=== PATIENT | female | born 1955 | race Caucasian/White ===

== ENCOUNTER → 2016-06-22 | Outpatient (CLI) | payer OTHER ==
--- NOTE | 2016-06-22 19:26 | MR ---
EXAMINATION TYPE: MR lumbar spine wo con DATE OF EXAM: 06/22/2016 12:33 PM COMPARISON: NONE HISTORY: 61-year-old female with pain, evaluate for lumbar stenosis. TECHNIQUE: Multiplanar, multisequence images of the lumbar spine were acquired. FINDINGS: Vertebral body heights are preserved. There is a component of congenital spinal canal narrowing within the lumbar spine. Upper lumbar AP ca nal dimension is 1.2 cm and lower lumbar AP canal dimension is 1.0 cm. No suspicious bone marrow placement. Variable intervertebral disc desiccation especially in the mid to lower lumbar spine with bulging dis ks and moderate disc interspace narrowing at L3-L4 with associated Modic type III sclerotic endplate change. Additional facet arthropathy mid to lower lumbar spine with ligamentum flavum thickening and prominen t dorsal epidural fat. Conus medullaris is normal. At T12-L1, no spinal canal or foraminal stenosis. At L1-L2, no significant spinal canal or neural foraminal stenosis. At L2-L3, mild facet degenerative change without significant spinal canal or neuroforaminal stenosis. At L3-L4, there is hypertrophic facet arthropathy with grade 1 anterolisthesis, disc bulge, ligamentu m flavum thickening, and prominent dorsal epidural fat. Changes result in a severe spinal canal steno sis with mild bilateral neuroforaminal stenosis. At L4-L5, diffuse disc bulge with prominent dorsal epidural fat, ligamentum flavum thickening, and fa cet arthropathy. Changes mildly narrow the spinal canal with moderate bilateral neuroforaminal stenos is. At L5-S1, there is facet arthropathy and prominent dorsal epidural fat. There is circumferential atte nuation of the thecal sac without significant spinal canal stenosis. Mild bilateral neuroforaminal na rrowing. No prevertebral or paravertebral soft tissue abnormality. IMPRESSION: 1. Moderate degenerative disc disease mid to lower lumbar spine with hypertrophic facet arthropathy a nd ligamentum flavum thickening. 2. There is underlying mild congenital canal narrowing. 3. Superimposed degenerative changes are greatest at L3-L4 where there is also grade 1 anterolisthesi s. There is resultant severe spinal canal stenosis at this level with mild bilateral neuroforaminal s tenosis. 4. Mild overall spinal canal narrowing at L4-L5 with moderate bilateral neuroforaminal stenosis.
== END | disposition home or self-care (01) ==
LOC: RADMRIMAIN 11:26
PROVIDERS: ATTEND Family Medicine
DX: M48.06 Spinal stenosis, lumbar region (principal); M99.73 Connective tissue and disc stenosis of intervertebral foramina of lumbar region; M51.36 Other intervertebral disc degeneration, lumbar region; M43.16 Spondylolisthesis, lumbar region; M46.97 Unspecified inflammatory spondylopathy, lumbosacral region; M47.816 Spondylosis without myelopathy or radiculopathy, lumbar region; M24.28 Disorder of ligament, vertebrae
CPT/HCPCS: 72148

== ENCOUNTER → 2016-09-02 | Outpatient (CLI) | payer OTHER ==
[2016-08-30 16:25] VITALS: BMI 21.3
== END | disposition home or self-care (01) ==
LOC: PNWHC3 11:52
PROVIDERS: ATTEND Specialist
DX: M48.06 Spinal stenosis, lumbar region (principal)

== ENCOUNTER → 2016-09-05 | Outpatient (CLI) | payer OTHER ==
--- NOTE | 2016-09-05 17:42 | CT ---
EXAMINATION TYPE: CT soft tissue neck w con DATE OF EXAM: 09/05/2016 4:32 PM COMPARISON: NONE HISTORY: Anterior neck swelling x [address] DLP: 293.50 mGycm Automated exposure control for dose reduction was used. CONTRAST: CT scan of the neck is performed following with IV Contrast, patient injected with 100 mL of Omnipaqu e 300. Axial images are obtained, coronal and sagittal reformatted images are reviewed. FINDINGS: Superior mediastinum appears normal. There is normal branching pattern of the great vessels on the ao rtic arch. There is patency of the carotid and vertebral arteries. Thyroid gland is symmetric. Subman dibular salivary glands are symmetric. Parotid glands are symmetric. There is no evidence of a pharyn geal mass. Epiglottis appears normal. Prevertebral soft tissues are within normal limits. I see no pa thologic enhancement. I see no evidence of cervical adenopathy. There is fairly normal aeration of th e paranasal sinuses. IMPRESSION: Negative CT scan of the neck. No discrete neck mass.
== END | disposition home or self-care (01) ==
LOC: RADCTMAIN 16:07
PROVIDERS: ATTEND Family Medicine
DX: R22.1 Localized swelling, mass and lump, neck (principal)
CPT/HCPCS: 70491; Q9967

== ENCOUNTER → 2016-11-26 | Outpatient (CLI) | payer OTHER ==
--- NOTE | 2016-11-26 14:13 | P.HPIM ---
History of Present Illness H&P Date: 11/26/16 Chief Complaint: low back and leg pain This is a 61-year-old patient referred by Dr. Ortiz for chronic pain in low back and numbness/tingling in lower extremities for epidural steroid injections. Patient has been taking medications from primary care physician including Tylenol medications with some relief. Patient denies adverse drug effects from medications. Patient also denies new-onset weakness, bowel/ bladder incontinence, or any other signs or symptoms of cauda equina syndrome. There are no signs of acute intoxication, and no indications of medication diversion or overuse. Patient notes that pain worsens significantly with standing and improves with sitting and medication. Patient has used several types of medications for pain, including NSAIDS, OPIOIDS.. Patient HAS NOT had surgery. Patient HAS had injections previously (ESIs at [facility] with 2 months' relief after series of 3). Patient HAS NOT had physical therapy recently. In addition to above, 13-point review of systems is also negative for chest pain , shortness of breath, changes in vision, changes in hearing, new onset weakness , abdominal pain, diarrhea, extreme fatigue, malaise, fever, skin changes, homicidal or suicidal ideation, or bowel or bladder incontinence. Vital Signs: Reviewed in EMR Gen: WDWN, AAOx3, NAD HEENT: NCAT, EOMI, hearing grossly normal Pulm: resp unlabored Abd: soft, NT, ND Neck: supple, trachea midline ROM in flexion lumbar spine: reduced ROM in extension lumbar spine: reduced Lumbar paravertebral tenderness: + Facet loading: + bilateral SI joint tenderness: neg Adryan's test: neg Straight leg raise: neg Lower extremity: decreased strength in dorsi/plantarflexion bilateral ankles / Neuro: CN II-XII grossly intact Past Medical History Past Medical History: Hyperlipidemia, Musculoskeletal Disorder, Osteoarthritis ( OA) Additional Past Medical History / Comment(s): pain lower lumber region,migraines ,urinary leakage,steroid injection July 2016 History of Any Multi-Drug Resistant Organisms: None Reported Past Surgical History: Appendectomy, Orthopedic Surgery Additional Past Surgical History / Comment(s): bunionectomy Past Anesthesia/Blood Transfusion Reactions: Motion Sickness Smoking Status: Current some day smoker - Past Family History Father Family Medical History: No Reported History Mother Family Medical History: COPD Medications and Allergies Home Medications Medication Instructions Recorded Confirmed Type FLUoxetine HCL [Fluoxetine HCl] 20 mg PO HS 04/05/14 08/30/16 History Nadolol [Nadolol] 20 mg PO HS 04/05/14 08/30/16 History Simvastatin [Simvastatin] 40 mg PO HS 04/05/14 08/30/16 History Aspirin EC [Ecotrin] 81 mg PO HS 12/06/14 08/30/16 History Biotin 5 mg PO DAILY 12/06/14 08/30/16 History Folic Acid 1 mg PO HS 12/06/14 08/30/16 History Cyclobenzaprine HCl 10 mg PO QAM 08/30/16 08/30/16 History Gabapentin [Neurontin] 300 mg PO TID 08/30/16 08/30/16 History Levothyroxine Sodium [Synthroid] 50 mcg PO QAM 08/30/16 08/30/16 History Montelukast Sodium 10 mg PO HS 08/30/16 08/30/16 History Meloxicam [Mobic] 15 mg PO DAILY #30 tab 11/26/16 Rx Allergies Allergy/AdvReac Type Severity Reaction Status Date / Time Sulfa (Sulfonamide Allergy Unknown Verified 08/30/16 16:16 Antibiotics) Assessment and Plan (1) Lumbar spinal stenosis Status: Chronic (2) Lumbar spondylosis Status: Chronic Plan: 1. Explanation: Opioid and psychological risk scores were reviewed. Diagnoses , prognoses, and multiple treatment options including but not limited to physical therapy, interventional therapies, adjuvant medical therapies, narcotic medication therapies, and surgery were discussed with the patient and all questions were answered to the patient's satisfaction. 2. Opioid agreement: no opioids prescribed today 3. Counseling: The patient was counseled extensively on BODY MASS INDEX, EXERCISE. Specifically, the patient was instructed regarding the importance of weight control, and exercise in the context of both chronic pain and overall health. 4. Procedures: bilateral LMBB L3-S1 5. Consultations: none 6. Investigations: none 7. Medications: Mobic 15 mg daily #30 with one refill 8. Disposition: f/u for procedure as scheduled PQRS measures: 1-Patient's medications are documented in the chart. 2-Tobacco use is negative 3-Patient has not had a pneumococcal vaccine. 4-Advanced care planning discussed, patient unable to give. 5-Opioid contract NOT signed with the patient. 6-Pain positive, follow-up visit or procedure scheduled 7-Patient's blood pressure measured and documented, and patient will follow up with the primary care due to hypertension. 8-Patient's weight was measured, and body mass index ABOVE the normal limits, and counseling was done. Patient instructed to follow up with PCP. 9-Patient WAS NOT identified as an unhealthy alcohol user. Time with Patient: Greater than 30
== END | disposition home or self-care (01) ==
LOC: PNWHC3 13:29
PROVIDERS: ATTEND Anesthesiology
DX: M48.06 Spinal stenosis, lumbar region (principal); M47.816 Spondylosis without myelopathy or radiculopathy, lumbar region; F17.200 Nicotine dependence, unspecified, uncomplicated; E78.5 Hyperlipidemia, unspecified; M19.90 Unspecified osteoarthritis, unspecified site; Z79.899 Other long term (current) drug therapy; Z79.82 Long term (current) use of aspirin; Z79.1 Long term (current) use of non-steroidal anti-inflammatories (NSAID); Z88.2 Allergy status to sulfonamides
CPT/HCPCS: 99211

== ENCOUNTER 2016-12-18 08:08 | Day surgery (SDC) | payer OTHER ==
[2016-12-13 11:02] VITALS: BMI 23.2
[~2016-12-18 08:08] MED LIST: LACTATED RINGERS 1,000 ML IV SCH
[2016-12-18 09:07] VITALS: TEMP 97
--- NOTE | 2016-12-18 09:35 | P.PN ---
Progress Note - Text Progress Note Date: 12/18/16 Patient was consented for bilateral lumbar medial branch block and positioned on the operating room table in prone position. Patient was given 3 mg Versed IV and was unable to tolerate position and lie still. Patient requested to be "put to sleep" and I informed her that this is not possible because I do not have dedicated anesthesia providers to monitor patient's airway. I will refer the patient back to [facility] for further injections, as she had some epidural steroid injections done at that facility earlier this year. She will follow up with our clinic as needed.
[2016-12-18] MEDS ORDERED: IV FLUID CONTINUATION 1,000 ML IV ONE (09:40)
[2016-12-18 10:42] VITALS: BP 138/81; PULSE 82; RESP 16
== END 2016-12-18 11:04 | disposition home or self-care (01) ==
LOC: ORPAIN 08:08
PROVIDERS: ATTEND Anesthesiology
DX: G89.29 Other chronic pain (principal); Z53.8 Procedure and treatment not carried out for other reasons; Z79.1 Long term (current) use of non-steroidal anti-inflammatories (NSAID); Z79.891 Long term (current) use of opiate analgesic; Z88.2 Allergy status to sulfonamides
CPT/HCPCS: 64493; J2250; 99152

== ENCOUNTER → 2018-04-09 | Outpatient (CLI) | payer OTHER ==
--- NOTE | 2018-04-11 09:04 | MM ---
Reason for exam: screening (asymptomatic). Last mammogram was performed 4 years ago. History: Patient is postmenopausal and is nulliparous. MG Screening Mammo w CAD Bilateral CC and MLO view(s) were taken. Prior study comparison: March 29, 2014, bilateral MG screening mammo w CAD. May 28, 2012, bilateral digital screening mammo w/CAD. The breast tissue is extremely dense which could obscure a lesion on mammography. There are 5 grouped heterogeneous calcifications in the left breast upper outer posterior position. Finding is changed when compared to prior studies. ASSESSMENT: Incomplete: need additional imaging evaluation, BI-RAD 0 RECOMMENDATION: Special view mammogram of the left breast.
== END ==
LOC: RADMAMWWP 13:46
PROVIDERS: ATTEND Family Medicine
DX: Z12.31 Encounter for screening mammogram for malignant neoplasm of breast (principal)
CPT/HCPCS: 77067

== ENCOUNTER → 2018-04-14 | Outpatient (CLI) | payer OTHER ==
--- NOTE | 2018-04-14 14:54 | MM ---
Reason for exam: additional evaluation requested from abnormal screening. Last mammogram was performed less than 1 month ago. History: Patient is postmenopausal and is nulliparous. Physical Findings: Nurse did not find any significant physical abnormalities on exam. MG Work Up Mamm w CAD LT CC and MLO view(s) were taken of the left breast. Prior study comparison: April 09, 2018, bilateral MG screening mammo w CAD. March 29, 2014, bilateral MG screening mammo w CAD. Finding: There are typically benign round, diffuse/scattered and grouped calcifications in the left breast. Area of concern regional benign round calcification. No suspicious cluster of microcalcifications. New finding and increase in number of calcifications since April 09, 2018 and March 29, 2014. These results were verbally communicated with the patient and result sheet given to the patient on 04/14/18. ASSESSMENT: Benign, BI-RAD 2 RECOMMENDATION: Return to routine screening mammogram schedule for both breasts.
== END | disposition home or self-care (01) ==
LOC: RADMAMWWP 13:36
PROVIDERS: ATTEND Family Medicine
DX: R92.8 Other abnormal and inconclusive findings on diagnostic imaging of breast (principal)
CPT/HCPCS: 77065

== ENCOUNTER → 2018-06-12 | Outpatient (CLI) | payer OTHER ==
--- NOTE | 2018-06-12 13:01 | CT ---
EXAMINATION TYPE: CT chest wo con DATE OF EXAM: 06/12/2018 COMPARISON: NONE HISTORY: Low oxygenation. Rule out emphysema CT DLP: 159.3 mGycm. Automated Exposure Control for Dose Reduction was Utilized. TECHNIQUE: CT scan of the thorax is performed without IV contrast. FINDINGS: LUNGS: The lungs are predominantly clear, there is no concerning parenchymal mass or nodule identifie d. Minimal linear scarring medial right middle lobe is present and medial left lung base near diaphra gm axial images 40 and 47 for reference There is no pleural effusion or pneumothorax seen. The trac heobronchial tree is patent. MEDIASTINUM: Lack of IV contrast is noted to limit evaluation for mediastinal and especially hilar ad enopathy. There are no definitive greater than 1 cm hilar or mediastinal lymph nodes. No cardiomega ly or pericardial effusion is seen. Mild coronary artery calcification proximal LAD is seen axial harry ge 33. Mild calcified plaque of aorta extends into branch vessels. OTHER: Heterogeneously dense fibroglandular tissue in both breasts with scattered benign round calcif ications. IMPRESSION: Minimal lower lung linear scarring. No CT evidence for underlying emphysematous change. N o suspicious acute pulmonary process.
== END | disposition home or self-care (01) ==
LOC: RADCTMAIN 12:25
PROVIDERS: ATTEND Family Medicine
DX: J98.4 Other disorders of lung (principal)
CPT/HCPCS: 71250

== ENCOUNTER → 2019-02-23 | Day surgery (SDC) | payer OTHER ==
[2019-02-22 08:39] VITALS: BMI 24.4
[~2019-02-23] MED LIST changes: +LIDOCAINE 1% 20 ML VIAL (10MG/ML) FOR IV START INTRADERMA PRN; +LIDOCAINE 1% INJ 10MG/ML (20 ML MDV) ONE; +PROPOFOL 10 MG/ML 20 ML VIAL IV ONE
[2019-02-23 08:07] VITALS: TEMP 98.3
--- NOTE | 2019-02-23 08:40 | P.GSHP ---
History of Present Illness H&P Date: 02/23/19 Chief Complaint: GERD this a 64-year-old female who presents today for EGD. Patient had issues with GERD. Past Medical History Past Medical History: GERD/Reflux, Hyperlipidemia, Musculoskeletal Disorder, Osteoarthritis (OA), Thyroid Disorder Additional Past Medical History / Comment(s): pain lower lumber region,migraines,urinary leakage,SOME TROUBLE SWALLING " History of Any Multi-Drug Resistant Organisms: None Reported Past Surgical History: Appendectomy, Orthopedic Surgery Additional Past Surgical History / Comment(s): bunionectomy, PAIN CLINIC INJECTIONS Past Anesthesia/Blood Transfusion Reactions: Motion Sickness Smoking Status: Current some day smoker - Past Family History Father Family Medical History: Cancer Additional Family Medical History / Comment(s): LUNG CANCER Mother Family Medical History: COPD Medications and Allergies Home Medications Medication Instructions Recorded Confirmed Type FLUoxetine HCL [Fluoxetine HCl] 20 mg PO HS 04/05/14 02/22/19 History Nadolol 20 mg PO HS 04/05/14 02/23/19 History Simvastatin 40 mg PO HS 04/05/14 02/22/19 History Aspirin EC [Ecotrin] 81 mg PO HS 12/06/14 02/22/19 History Folic Acid 1 mg PO HS 12/06/14 02/22/19 History Cyclobenzaprine HCl 10 mg PO BID 08/30/16 02/22/19 History Gabapentin [Neurontin] 600 mg PO TID 08/30/16 02/22/19 History Levothyroxine Sodium [Synthroid] 50 mcg PO QAM 08/30/16 02/22/19 History Montelukast Sodium 10 mg PO HS 08/30/16 02/22/19 History Acetaminophen [Tylenol] 500 mg PO TID PRN 12/13/16 02/22/19 History Fluticasone Nasal [place] [Flonase 1 spray EA NOSTRIL BID PRN 12/13/16 02/22/19 History Nasal [place]] Melatonin/Valerian Unknown Dos 1 dose PO HS 12/13/16 02/22/19 History Multivitamins, Thera [Multivitamin 1 tab PO DAILY 12/13/16 02/22/19 History (formulary)] Vitamin B Complex 1 each PO DAILY 12/13/16 02/22/19 History Amitriptyline HCl 20 mg PO HS 02/22/19 02/22/19 History Varenicline [Chantix Continuing 1 mg PO HS 02/22/19 02/22/19 History Pack] Allergies Allergy/AdvReac Type Severity Reaction Status Date / Time Sulfa (Sulfonamide Allergy Unknown Verified 02/23/19 07:55 Antibiotics) Childhood Surgical - Exam Vital Signs Temp Pulse Resp BP Pulse Ox 98.3 F 89 17 138/63 98 02/23/19 08:05 02/23/19 08:05 02/23/19 08:05 02/23/19 08:05 02/23/19 08:05 - General well developed, well nourished, no distress - Eyes PERRL - ENT normal pinna - Neck no masses - Respiratory normal expansion - Cardiovascular Rhythm: regular - Abdomen Abdomen: soft, non tender Assessment and Plan Assessment: GERD. We'll perform EGD.
--- NOTE | 2019-02-23 08:47 | P.OP ---
Date of Procedure: 02/23/19 Preoperative Diagnosis: GERD Postoperative Diagnosis: antral gastritis Mild esophagitis No evidence of hiatal hernia Procedure(s) Performed: EGD Anesthesia: MAC Surgeon: Jacky Romo Pathology: other (antrum, esophagus) Condition: stable Disposition: PACU Description of Procedure: the patient's placed on the endoscopy table in the lateral position. HC IV sedation. The gastroscope placed oropharynx passed in the esophagus into the stomach. Scope was then placed through the pylorus. The first and second portion of the duodenum. Normal. Scope summer back the antrum this. Mildly inflamed. A biopsies performed. Scope was unretroflexed and remainder stomach appeared normal. There was no significant hiatal hernia. The GE junction was at 40 cm. The distal esophagus appeared minimally inflamed a biopsies performed. The proximal esophagus appeared normal. Scope was withdrawn for patient.
[2019-02-23 09:02] VITALS: RESP 18
[2019-02-23 09:15] VITALS: BP 104/70; PULSE 61
--- NOTE | 2019-02-23 13:01 | NM ---
Nuclear medicine hepatobiliary scan. HISTORY: Pain. DOSAGE: The patient received 1.15 mcg of CCK and 4.7 mCi of Technetium 99m Choletec. FINDINGS: There is normal hepatic extraction. The gallbladder is seen by 20 minutes. There is bilia ry to bowel clearance by 50 minutes. Ejection fraction is 82%. IMPRESSION: 1. No diagnostic evidence of cholecystitis. 2. Ejection fraction of 82% which can occasionally be associated with hyperdynamic gallbladder. Corre late clinically.
== END ==
LOC: ORWHC2ENDO 07:37
PROVIDERS: ATTEND Surgery
DX: K29.50 Unspecified chronic gastritis without bleeding (principal); K21.0 Gastro-esophageal reflux disease with esophagitis; E78.5 Hyperlipidemia, unspecified; M19.90 Unspecified osteoarthritis, unspecified site; E07.9 Disorder of thyroid, unspecified; G43.909 Migraine, unspecified, not intractable, without status migrainosus; F17.210 Nicotine dependence, cigarettes, uncomplicated; R32 Unspecified urinary incontinence; M54.5 Low back pain; Z80.1 Family history of malignant neoplasm of trachea, bronchus and lung; Z82.5 Family history of asthma and other chronic lower respiratory diseases; Z79.890 Hormone replacement therapy; Z79.899 Other long term (current) drug therapy; Z88.2 Allergy status to sulfonamides
CPT/HCPCS: 88305; 78227; 43239; A9537; J2805; J2001; J2704

== ENCOUNTER 2019-03-22 06:17 | Day surgery (SDC) | payer OTHER ==
[2019-03-18 12:44] VITALS: BMI 24.7
[~2019-03-22 06:17] MED LIST changes: +DEXAMETHASONE SOD PHOSPHATE 10 MG/ML 1 ML VIAL IV ONE; +HEPARIN SODIUM,PORCINE 5,000 UNIT/ML 1 ML VIAL SQ ONE; -LIDOCAINE 1% 20 ML VIAL (10MG/ML) FOR IV START INTRADERMA PRN; -LIDOCAINE 1% INJ 10MG/ML (20 ML MDV) ONE; +MIDAZOLAM 2 MG/2 ML VIAL IV PRN; -PROPOFOL 10 MG/ML 20 ML VIAL IV ONE; +fentaNYL (PF) 50 MCG/ML 2 ML AMP IV PRN
[2019-03-22] MEDS ORDERED: ONDANSETRON 4 MG/2 ML VIAL IVP ONE (06:59)
[2019-03-22] MEDS ORDERED: DEXAMETHASONE SOD PHOS (MDV) 100 MG/10 ML VIAL IV ONE (07:00)
--- NOTE | 2019-03-22 07:46 | P.GSHP ---
History of Present Illness H&P Date: 03/22/19 Chief Complaint: Right upper quadrant pain This is a 64-year-old female who presents today for laparoscopic cholecystectomy. Patient's had complete the right upper quadrant pain. Her HIDA scan shows abnormal ejection fraction consistent biliary dyskinesia and chronic cholecystitis Past Medical History Past Medical History: GERD/Reflux, Hyperlipidemia, Osteoarthritis (OA), Thyroid Disorder Additional Past Medical History / Comment(s): Pain lower lumber region, hx migraines, last 2 yrs ago, urinary leakage, difficulty swallowing. History of Any Multi-Drug Resistant Organisms: None Reported Past Surgical History: Appendectomy, Orthopedic Surgery Additional Past Surgical History / Comment(s): Bunionectomy, PAIN CLINIC INJECTIONS. Past Anesthesia/Blood Transfusion Reactions: Motion Sickness Past Psychological History: No Psychological Hx Reported Smoking Status: Current some day smoker Past Alcohol Use History: Daily Additional Past Alcohol Use History / Comment(s): STARTED SMOKING AT AGE 20, TRYING TO QUIT, SMOKES 1/2 PACK A WEEK, DRINKS 2 BEERS DAILY. Past Drug Use History: None Reported - Past Family History Father Family Medical History: Cancer Additional Family Medical History / Comment(s): LUNG CANCER. Mother Family Medical History: COPD Medications and Allergies Home Medications Medication Instructions Recorded Confirmed Type FLUoxetine HCL [Fluoxetine HCl] 20 mg PO HS 04/05/14 03/18/19 History Nadolol 20 mg PO HS 04/05/14 03/22/19 History Simvastatin 40 mg PO HS 04/05/14 03/18/19 History Cyclobenzaprine HCl 10 mg PO BID 08/30/16 03/18/19 History Gabapentin [Neurontin] 600 mg PO TID 08/30/16 03/22/19 History Levothyroxine Sodium [Synthroid] 50 mcg PO QAM 08/30/16 03/22/19 History Montelukast Sodium 10 mg PO HS 08/30/16 03/22/19 History Fluticasone Nasal [place] [Flonase 1 spray EA NOSTRIL BID PRN 12/13/16 03/22/19 History Nasal [place]] Melatonin/Valerian Unknown Dos 1 dose PO HS 12/13/16 03/18/19 History Amitriptyline HCl 20 mg PO QAM 02/22/19 03/22/19 History Varenicline [Chantix Continuing 1 mg PO HS 02/22/19 03/18/19 History Pack] Ranitidine HCl 300 mg PO HS 03/18/19 03/18/19 History Allergies Allergy/AdvReac Type Severity Reaction Status Date / Time Sulfa (Sulfonamide Allergy Unknown Verified 03/22/19 06:40 Antibiotics) Childhood Surgical - Exam Vital Signs Temp Pulse Resp BP Pulse Ox 97.5 F L 68 16 148/67 96 03/22/19 06:54 03/22/19 06:54 03/22/19 06:54 03/22/19 06:54 03/22/19 06:54 - General well developed, well nourished, no distress - Eyes PERRL - ENT normal pinna - Neck no masses - Respiratory normal expansion - Cardiovascular Rhythm: regular - Abdomen Abdomen: soft, non tender Assessment and Plan Assessment: Biliary dyskinesia Chronic cholecystitis We'll perform laparoscopic cholecystectomy
[2019-03-22] MEDS ORDERED: LIDOCAINE 1% INJ 10MG/ML (20 ML MDV) ONE (07:54)
[2019-03-22] MEDS ORDERED: ePHEDrine SULFATE/0.9% NACL/PF 50 MG/5 ML SYRINGE IV ONE (07:54)
[2019-03-22] MEDS ORDERED: PROPOFOL 10 MG/ML 20 ML VIAL IV ONE (07:54)
[2019-03-22] MEDS ORDERED: MIDAZOLAM 2 MG/2 ML VIAL ONE (07:54)
[2019-03-22] MEDS ORDERED: ROCURONIUM BROMIDE 10 MG/ML 10 ML VIAL IV ONE (07:54)
[2019-03-22] MEDS ORDERED: GLYCOPYRROLATE 0.2 MG/ML 2 ML VIAL ONE (07:54)
[2019-03-22] MEDS ORDERED: NEOSTIGMINE 1 MG/ML 10 ML VIAL ONE (07:54)
[2019-03-22] MEDS ORDERED: fentaNYL (PF) 50 MCG/ML 2 ML AMP ONE (07:54)
[2019-03-22] MEDS ORDERED: SUCCINYLCHOLINE CHLORIDE 100 MG/5 ML SYR IV ONE (07:54)
[2019-03-22] MEDS ORDERED: NALOXONE 0.4 MG/ML 1 ML VIAL ONE (07:54)
[2019-03-22] MEDS ORDERED: BUPIVACAIN-EPI 0.25%-1:200,000 30 ML VIAL SQ ONE ×2 (08:06→08:08)
--- NOTE | 2019-03-22 08:33 | P.OP ---
Date of Procedure: 03/22/19 Preoperative Diagnosis: Cholecystitis Postoperative Diagnosis: Cholecystitis Procedure(s) Performed: Laparoscopic cholecystectomy Anesthesia: RUSH Surgeon: Jacky Romo Estimated Blood Loss (ml): 5 Pathology: other (Gallbladder) Condition: stable Disposition: PACU Operative Findings: The patient was placed on the operating table. The patient received a general endotracheal tube anesthesia. The patients abdomen was prepped and draped in the usual sterile fashion. Through an infraumbilical stab incision, the fascia of the anterior abdominal wall was grasped with a pair of Kochers and then the Veress needle was placed in the peritoneal cavity. Position of the Veress needle was confirmed with positive drop test. The abdomen was then insufflated. After adequate insufflation, the 10 mm trocar was placed in the peritoneal cavity. Following this the laparoscope was placed in the peritoneal cavity. The patient was placed in the head-up, right side up position and then a 5 mm trocar was placed in the right lateral and right subcostal position under direct visualization. A 8 mm trocar was placed in the epigastric position. The gallbladder was grasped in the fundus and infundibulum. Traction on the gallbladder was placed in the lateral and the cephalad positions. The triangle of Calot was visualized.. The cystic duct was bluntly dissected until the union of the cystic duct and common bile duct was seen. A critical view of safety was achieved. The cystic duct was then divided and sealed with the Harmonic scissors. A PDS Endoloop was then placed throughout the cystic duct stump. The cystic artery divided and sealed with the Harmonic scissors. The gallbladder was then removed from the liver bed using Harmonic scissors. The gallbladder was then extracted through the epigastric port site. Operative field was checked for any bleeding spots and Harmonic scissors was used to coagulate the liver bed. The abdomen was irrigated. The trocars were removed. The skin was closed using interrupted 3-0 Vicryl suture. Dermabond dressing were applied. The patient tolerated the procedure well.
[2019-03-22 08:43] VITALS: TEMP 97.2
[2019-03-22 10:00] VITALS: BP 112/70; PULSE 63; RESP 18
== END 2019-03-22 10:23 | disposition home or self-care (01) ==
LOC: OR 06:17
PROVIDERS: ATTEND Surgery
DX: K81.1 Chronic cholecystitis (principal); K82.8 Other specified diseases of gallbladder; K21.9 Gastro-esophageal reflux disease without esophagitis; E78.5 Hyperlipidemia, unspecified; G43.909 Migraine, unspecified, not intractable, without status migrainosus; E07.9 Disorder of thyroid, unspecified; F32.9 Major depressive disorder, single episode, unspecified; F17.210 Nicotine dependence, cigarettes, uncomplicated; M19.90 Unspecified osteoarthritis, unspecified site; Z88.2 Allergy status to sulfonamides; Z79.890 Hormone replacement therapy; Z79.899 Other long term (current) drug therapy; Z90.49 Acquired absence of other specified parts of digestive tract; Z80.1 Family history of malignant neoplasm of trachea, bronchus and lung; Z83.6 Family history of other diseases of the respiratory system
CPT/HCPCS: 88304; 47562; J2250; J1644; J2310; J2710; J0690; J2405; J2001; J3010; J1100; J0330; J2704

== ENCOUNTER → 2020-11-23 | Outpatient (CLI) | payer MEDICARE ==
--- NOTE | 2020-11-24 12:44 | MM ---
Reason for exam: screening (asymptomatic). Last mammogram was performed 2 years and 7 months ago. History: Patient is postmenopausal and is nulliparous. Took hormonal contraceptives for 6 months. Physical Findings: A clinical breast exam by your physician is recommended on an annual basis and results should be correlated with mammographic findings. MG 3D Screening Mammo W/Cad Bilateral CC and MLO view(s) were taken. Prior study comparison: April 14, 2018, left breast MG work up mamm w CAD LT. April 09, 2018, bilateral MG screening mammo w CAD. The breast tissue is extremely dense which could obscure a lesion on mammography. Stable benign calcifications. There is no discrete abnormality. No significant changes when compared with prior studies. ASSESSMENT: Benign, BI-RAD 2 RECOMMENDATION: Routine screening mammogram of both breasts in 1 year.
== END | disposition home or self-care (01) ==
LOC: RADMAMWWP 11:17
PROVIDERS: ATTEND Family Medicine
DX: Z12.31 Encounter for screening mammogram for malignant neoplasm of breast (principal); Z78.0 Asymptomatic menopausal state; Z79.3 Long term (current) use of hormonal contraceptives
CPT/HCPCS: 77063; 77067

== ENCOUNTER → 2022-03-06 | Outpatient (CLI) | payer MEDICARE ==
[2022-03-06 14:09] LABS: Basophils # (A) 0.1 k/uL (0-0.2); Basophils % (A) 1 %; Eosinophils # (A) 0.2 k/uL (0-0.7); Eosinophils % (A) 3 %; HCT 34.6 % (34.0-46.0); HGB 11.5 gm/dL (11.4-16.0); Lymphocytes # (A) 1.6 k/uL (1.0-4.8); Lymphocytes % (A) 21 %; MCH 31.4 pg (25.0-35.0); MCHC 33.2 g/dL (31.0-37.0); MCV 94.7 fL (80.0-100.0); Mean Platelet Volume 7.4; Monocytes # (A) 0.4 k/uL (0-1.0); Monocytes % (A) 6 %; Neutrophils % (A) 67 %; Platelet Count 348 k/uL (150-450); RBC 3.65 m/uL (3.80-5.40); RDW 13.6 % (11.5-15.5); WBC 7.5 k/uL (3.8-10.6)
[2022-03-06 14:18] LABS: ALT 17 U/L (4-34); AST 25 U/L (14-36); African American GFR (CKD) >90 (>60 ml/min/1.73 sqM); Albumin 4.4 g/dL (3.5-5.0); Alkaline Phosphatase 62 U/L (38-126); Anion Gap 8 mmol/L; Blood Urea Nitrogen 7 mg/dL (7-17); Calcium 9.4 mg/dL (8.4-10.2); Carbon Dioxide 30 mmol/L (22-30); Chloride 98 mmol/L (98-107); Glucose 83 mg/dL (74-99); Non-African American GFR(CKD) >90 (>60 ml/min/1.73 sqM); Partial Thromboplastin Time 24.4 sec (22.0-30.0); Potassium 4.5 mmol/L (3.5-5.1); Prothrombin Time 10.3 sec (9.0-12.0); Sodium 136 mmol/L (137-145); Total Bilirubin 0.5 mg/dL (0.2-1.3); Total Protein 7.1 g/dL (6.3-8.2)
[2022-03-06 14:32] LABS: Appearance,Urine Clear (Clear); Bilirubin,Urine Negative (Negative); Blood,Urine Negative (Negative); Color,Urine Yellow; Glucose,Urine (UA) Negative (Negative); Ketones,Urine Negative (Negative); Leukocyte Esterase,Urine Small (Negative); Nitrite,Urine Negative (Negative); PH, Urine 7.5 (5.0-8.0); Protein,Urine Trace (Negative); RBC,Urine <1 /hpf (0-5); Specific Gravity,Urine 1.015 (1.001-1.035); Squamous Epithelial Cell,Urine 1 /hpf (0-4); Urobilinogen,Urine <2.0 mg/dL (<2.0); WBC,Urine 3 /hpf (0-5)
== END | disposition home or self-care (01) ==
LOC: LABPAT 12:48
PROVIDERS: ATTEND Orthopaedic Surgery
DX: Z01.812 Encounter for preprocedural laboratory examination (principal); M16.11 Unilateral primary osteoarthritis, right hip
CPT/HCPCS: 80053; 81001; 85025; 85610; 85730; 87070

== ENCOUNTER 2022-03-13 10:42 | Day surgery (SDC) | payer MEDICARE ==
[~2022-03-13 10:42] MED LIST changes: +ACETAMINOPHEN TAB 500 MG TAB PO PRN; -DEXAMETHASONE SOD PHOSPHATE 10 MG/ML 1 ML VIAL IV ONE; +DEXAMETHASONE SOD PHOSPHATE 10 MG/ML 1 ML VIAL IV PRN; +DEXAMETHASONE SOD PHOSPHATE 4 MG/ML 1 ML VIAL IV ONE; +DOCUSATE 100 MG CAP PO PRN; +FAMOTIDINE 20 MG/2 ML VIAL IVP PRN; -HEPARIN SODIUM,PORCINE 5,000 UNIT/ML 1 ML VIAL SQ ONE; +HYDROmorphone 0.5 MG/0.5 ML SYRINGE IVP PRN; +KETOROLAC 15 MG/ML 1 ML VIAL IVP PRN; -LACTATED RINGERS 1,000 ML IV SCH; -MIDAZOLAM 2 MG/2 ML VIAL IV PRN; +ONDANSETRON 4 MG/2 ML VIAL IVP ONE; +ONDANSETRON 4 MG/2 ML VIAL IVP PRN; +ROPIVACAINE/EPI/CLONIDINE/KET 50 ML SYRINGE MISCELLANE PRN; +TRANEXAMIC ACID IN NACL,ISO-OS 1,000 MG in SALINE 1 100ML.BAG IVPB PRN; -fentaNYL (PF) 50 MCG/ML 2 ML AMP IV PRN; +oxyCODONE ER 10 MG TAB.ER.12H PO PRN
[2022-03-13] MEDS: LACTATED RINGERS 1,000 ML IV SCH ×2 (11:03→16:48)
[2022-03-13] MEDS ORDERED: MIDAZOLAM 2 MG/2 ML VIAL IV ONE (11:56)
[2022-03-13] MEDS ORDERED: MIDAZOLAM 2 MG/2 ML VIAL ONE (12:47)
[2022-03-13] MEDS ORDERED: TRANEXAMIC ACID IN NACL,ISO-OS 1,000 MG/100 ML BAG ONE (12:47)
[2022-03-13] MEDS ORDERED: HYDROmorphone (PF) 1 MG/ML ONE (12:47)
[2022-03-13] MEDS ORDERED: DEXAMETHASONE SOD PHOSPHATE 4 MG/ML 1 ML VIAL ONE (12:47)
[2022-03-13] MEDS ORDERED: ROPIVACAINE 5 MG/ML 30 ML VIAL ONE (12:47)
[2022-03-13] MEDS ORDERED: PROPOFOL 10 MG/ML 20 ML VIAL IV ONE (12:47)
[2022-03-13] MEDS ORDERED: LACTATED RINGERS 1,000 ML IV ONE (15:04)
[2022-03-13] MEDS ORDERED: NALOXONE 0.4 MG/ML 1 ML VIAL IV PRN (15:30)
[2022-03-13] MEDS ORDERED: ONDANSETRON 4 MG/2 ML VIAL IVP PRN (15:30)
[2022-03-13] MEDS ORDERED: HYDROcodone/APAP 5-325MG 1 EACH TAB PO PRN ×2 (15:30)
[2022-03-13] MEDS ORDERED: hydrOXYzine pamoate 25 MG CAP PO PRN (15:30)
[2022-03-13] MEDS ORDERED: HYDROmorphone 0.5 MG/0.5 ML SYRINGE IVP PRN ×3 (15:30)
--- NOTE | 2022-03-13 15:34 | P.OP ---
Date of Procedure: 03/13/22 Preoperative Diagnosis: Right hip avascular necrosis Postoperative Diagnosis: Right hip avascular necrosis with collapse of the femoral head Procedure(s) Performed: Right direct anterior total hip arthroplasty Implants: 1. Renae Trident II Acetabular Cup, Size #46 2. Winthrop Insignia Size #3 Femoral Stem, Standard Offset 3. Dual Mobility OD 36 mm, ID 22.2 mm, +0neck (dual mobility was used due to the elevated dislocation risk with avascular necrosis and her small cup size) Anesthesia: regional, spinal Surgeon: Colby Hsieh Neck Cutter #1: Daniel Casey Estimated Blood Loss (ml): 100 IV fluids (ml): 1,200 Pathology: other (Femoral head sent to pathology due to collapse and likely avascular necrosis of the femoral head) Condition: stable Disposition: PACU Indications for Procedure: The patient is a very pleasant 67-year-old female who I have been seeing in the office for over a year with right hip pain. She had x-ray and MRI findings showing avascular necrosis. She had incapacitating hip pain and an inability to walks I recommended proceeding with a total hip replacement. We discussed the potential risks and complications of surgery and the increased risk profile of dislocation with avascular necrosis. I had a long discussion with the patient in the office on the potential risks and complications of an elective total hip replacement through a direct anterior approach. Risks discussed include, but are certainly not limited to, risks from anesthesia, superficial infection requiring local wound care or antibiotics, deep herlinda-prosthetic joint infection and the treatment required to eradicate infection, intraoperative fracture, postoperative periprosthetic fracture, damage to local blood vessels or nerves particularly the lateral femoral cutaneous nerve, delayed wound healing requiring local wound care or possibly surgical debridement, hip dislocation, leg length discrepancy, soft tissue irritation around the total hip implant such as iliopsoas tendinitis or tro chanteric bursitis, wear and osteolysis from the implants, squeaking or audible noises, groin pain, thigh pain, heterotopic ossification, stiffness, aseptic loosening of the implants, dissatisfaction with surgical outcome, need for revision surgery, DVT, PE, swelling of the operative extremity, acute coronary event, stroke, failure to thrive, and possibly loss of life or limb. The patient understands that while these are the most common complications after an elective hip replacement there are certainly other less common complications possible. They were given ample time to ask questions regarding the potential complications of a hip replacement. Following our discussion the patient provided their verbal and written consent to go forward with an elective total hip replacement. Operative Findings: Avascular necrosis with collapse of the femoral head and delamination of the superior articular cartilage Description of Procedure: The patient was identified in the preoperative holding area and the correct hip was marked with my initials. I reviewed the procedure and consent with the patient. All of their questions were answered. The patient was then brought back into the operating room by anesthesia. While on the [facility] anesthesia was administered by the anesthesia team. Preoperative antibiotics and tranexamic acid were also given. After the patient was under anesthesia I examined their ankles to determine their preoperative leg length discrepancy. The skin over the anterior aspect of the hip was shaved to remove hair over the site of planned incision. Both feet and ankles were padded with webril and boots for the [place] were applied. The patient was then carefully transferred onto the [place] table. A perineal post was immediately placed. The arms were placed on arm holders and were well-padded. Both boots were secured to the spars on the [place] table. The patient was positioned so that the pelvis was centered over the post. Nonsterile drapes were applied. A timeout was performed identifying the correct patient, operative extremity, and procedure. At this point fluoroscopy was brought in to take preoperative images of the pelvis and operative hip. Using the standing AP pelvis from the office as a template, a comparable image was obtained with fluoroscopy. A metallic bar was used to create a bi-ischial line for use as a reference to leg length adjustments during the procedure. Global offset was also measured on both the operative and nonoperative leg. Fluoroscopy was then brought out and a pre-scrub using a chlorhexidine scrub brush was performed. The operative limb was then prepped and draped in the standard sterile fashion. An anterior longitudinal incision was made lateral and distal to the ASIS. The skin and subcutaneous tissues were incised sharply. The underlying tensor fascia was identified and incised in its midportion. The fascia was dissected free from the underlying muscle and the muscle belly was retracted. A blunt tipped cobra retractor was placed over the superior neck under the muscle fibers of the gluteus minimus. The deep enveloping fascia of the tensor was incised. The anterior leash of vessels were then identified and cauterized. The fascia between the rectus and the capsule was then incised and the pre-capsular fat was excised. A second Cobra was placed inferior to the neck. The interval between the rectus and iliocapsularis and the hip capsule was developed and a retractor was placed carefully over the anterior rim of the acetabulum. A T-shaped anterior capsulotomy was performed. The superior capsular leaflet was left in place in the inferior capsular flap was excised. The Cobra retractors were placed intracapsularly. We then made a femoral neck osteotomy according to preoperative and intraoperative templating and confirmed the level of the osteotomy using fluoroscopic imaging. The femoral head was removed, passed off to the back table, and sized. There was a large area of collapse of the superior femoral head and delamination of the cartilage consistent with avascular necrosis. The superior capsular flap was excised. Retractors were placed circumferentially exposing the acetabulum. We then circumferentially debrided the acetabulum free of labrum and osteophytes. The pulvinar was removed to fully visualize the cotyloid fossa. We then sequentially reamed to achieve peripheral fit and excellent bleeding subchondral bone. The socket was thoroughly irrigated. The acetabular component was impacted into the appropr iate position using fluoroscopy to guide version, inclination, and depth of insertion taking care to have a comparable image of the AP pelvis to the standing image taken in the office. An excellent press-fit was achieved and final position was confirmed using fluoroscopy. The press fit was augmented with bony cancellus dome screws. The liner was then impacted into the socket. Attention was then turned to the femur. The remnant dorsal lateral capsule was excised. The short external rotators were visible and protected. A bone hook was used to confirm appropriate translation of the trochanter away from the acetabulum. The leg was then extended and adducted and the bone hook was used to elevate the femur for broaching. A box osteotome and blunt tipped canal sound was then utilized to gain access to the femoral canal. We then sequentially broached the femur in appropriate anteversion until excellent torsional stability was achieved. The neck cut was brought flush to the trial broach with a calcar planar. A trial neck and head were then placed onto the broach and the hip was atraumatically reduced under direct visualization. External rotation to 90 was performed to assess stability. Fluoroscopy was brought in. An AP and lateral fluoroscopic image of the proximal femur was obtained to assess position and fill of the trial broach. An AP of the pelvis was then obtained and matched to the preoperative image taken. A bi-ischial bar was then placed and measurements were taken to assess changes in length and offset. The hip was then carefully dislocated, the proximal femur was exposed, and the trial implants were removed. The wound and proximal femur was thoroughly irrigated using sterile saline and pulsatile lavage. The final femoral implant was dispensed and gently tapped into place generating an excellent press-fit. The trunnion was cleansed and the final head was tapped into place to engage the Storm taper. The acetabulum was irrigated and visualized to be free of debris. The hip was carefully reduced. Stability was checked clinically with external rotation to 90 and there was no evidence of instability. Final fluoroscopic images were taken. The wound was then thoroughly irrigated and soaked with a dilute Betadine rinse for 3 minutes. 3 L of sterile saline was irrigated through the wound using pulsatile lavage. Local anesthetic cocktail was injected into the soft tissues around the surgical field. A deep drain was placed. The wound was then closed in layers. A sterile dressing was placed over the surgical incision and drain site. The drapes were taken down and the patient was carefully transferred off of the [place] table. Following removal of the boots the leg lengths felt acceptable. The patient was then taken to recovery room having tolerated the procedure well. Daniel Casey PA-C was required as a skilled assistant chief engineer for patient positioning, surgical exposure, retraction, placement of implants, and closure of the surgi amarilis wound. PLAN: The patient can weight-bear as tolerated on the operative extremity. 2 doses of postoperative antibiotics. DVT prophylaxis with aspirin 81 mg twice a day based on preoperative risk stratification. Physical therapy for gait training. Discontinue drain postoperative day #1 if output is less than 100 mL per shift.
--- NOTE | 2022-03-13 16:32 | XR ---
Intraoperative/procedural fluoroscopic services were provided. Total fluoroscopy time is 36 seconds w ith a total of 10 submitted images to PACS. Please see the operative/procedural note for further deta ils.
[2022-03-13] MEDS: ASPIRIN 81 MG PO SCH (20:52)
[2022-03-13] MEDS: CYCLOBENZAPRINE 10 MG TAB PO SCH (20:53)
[2022-03-13] MEDS ORDERED: ATORVASTATIN 10 MG TAB PO SCH (21:00)
[2022-03-13] MEDS ORDERED: SENNOSIDES-DOCUSATE SODIUM 1 EACH TAB PO SCH (21:00)
[2022-03-13] MEDS ORDERED: MONTELUKAST 10 MG TAB PO SCH (21:00)
[2022-03-13] MEDS ORDERED: FLUoxetine HCL 20 MG CAP PO SCH (21:00)
[2022-03-13] MEDS ORDERED: AMITRIPTYLINE HCL 10 MG TAB PO SCH (21:00)
[2022-03-14] MEDS: LACTATED RINGERS 1,000 ML IV SCH ×3 (02:52→12:43)
[2022-03-14] MEDS ORDERED: LEVOTHYROXINE 50 MCG TAB PO SCH (06:30)
[2022-03-14] MEDS ORDERED: PANTOPRAZOLE 40 MG TABLET PO SCH (07:30)
[2022-03-14 07:48] VITALS: BP 133/61; PULSE 84; RESP 16; TEMP 98.1
--- NOTE | 2022-03-14 08:39 | P.DS ---
Providers Expected date of discharge: 03/14/22 Attending physician: Colby Hsieh Consults: 03/13/22 15:30 Consult Physician Routine Consulting Provider: Nuno Ortiz Consult Reason/Comments: medical management Do you want consulting provider notified?: Yes Primary care physician: Paty Ortiz [facility] Course: This is a 67-year-old female who has been followed in our office by Dr. Hsieh for continued complaints of right hip pain due to right hip AVN. Treatment options were discussed, and patient elected to undergo a right total hip arthroplasty. Patient was seen pre-operatively by Dr. Ortiz and cleared for surgery. Patient underwent a direct anterior right total hip arthroplasty on 03/13/22. The procedure was performed without complication or sequelae. The patient is doing fairly well postoperatively. Vital signs and labs are stable on postoperative day #1. Patient was examined bedside this morning with Dr. Hsieh. She is up to the bedside chair. Patient states she is overall doing very well and the pain in her right hip is well-controlled. Her hemovac drain was pulled this morning. She has been ambulating with a walker with minimal assistance. Patient is tolerating her breakfast well. Patient is comfortable being discharged home today. Patient denies chest pain, shortness of breath, nausea, vomiting, fevers, chills. On examination, the patient is sitting up in the bedside chair in no apparent distress. She is alert and orientated 3. On inspection of the right hip, there is a clean, dry, intact surgical dressing in place. There is no bleeding or drainage the dressing. Patient has good strength and ROM of the right ankle and toes. Motor and sensory function is intact of the right lower extremity. Femoral nerve function intact. The dorsalis pedis pulse is easily palpable, the right lower extremity is warm and well perfused with brisk capillary refill. Calf is soft and non-tender to palpation. Patient is discharged home with home health in good condition, pending medical clearance. Patient will follow-up with Dr. Hsieh in the office in 2 weeks. Please see med rec for accurate list of discharge medication. Plan - Discharge Summary Discharge Rx Participant: Yes New Discharge Prescriptions: New Docusate [Colace] 100 mg PO BID #60 capsule HYDROcodone/APAP 5-325MG [[place] 5-325] 1 - 2 tab PO Q6HR PRN 32 Days #7 tab PRN Reason: Pain Omeprazole 40 mg PO DAILY 30 Days #30 cap Aspirin 81 mg PO BID 30 Days #60 tab Diclofenac Sodium [Voltaren] 75 mg PO BID 30 Days #60 tab No Action nadoloL [Nadolol] 20 mg PO DAILY FLUoxetine HCL [Fluoxetine HCl] 20 mg PO HS Simvastatin 20 mg PO HS Levothyroxine Sodium [Synthroid] 50 mcg PO QAM Cyclobenzaprine HCl 10 mg PO BID Montelukast Sodium 10 mg PO HS Amitriptyline HCl 10 - 20 mg PO HS Pantoprazole [Protonix] 40 mg PO DAILY OXcarbazepine [Trileptal] 300 mg PO DAILY guaiFENesin [Mucinex] 600 mg PO Q12H PRN PRN Reason: Congestion HYDROcodone/APAP 7.5-325MG [[place]leaf 7.5-325] 1 tab PO Q6HR PRN PRN Reason: Pain Discharge Medication List FLUoxetine HCL [Fluoxetine HCl] 20 mg PO HS 04/05/14 [History] Simvastatin 20 mg PO HS 04/05/14 [History] nadoloL [Nadolol] 20 mg PO DAILY 04/05/14 [History] Cyclobenzaprine HCl 10 mg PO BID 08/30/16 [History] Levothyroxine Sodium [Synthroid] 50 mcg PO QAM 08/30/16 [History] Montelukast Sodium 10 mg PO HS 08/30/16 [History] Amitriptyline HCl 10 - 20 mg PO HS 02/22/19 [History] HYDROcodone/APAP 7.5-325MG [[place] 7.5-325] 1 tab PO Q6HR PRN 03/11/22 [History] OXcarbazepine [Trileptal] 300 mg PO DAILY 03/11/22 [History] Pantoprazole [Protonix] 40 mg PO DAILY 03/11/22 [History] guaiFENesin [Mucinex] 600 mg PO Q12H PRN 03/11/22 [History] Aspirin 81 mg PO BID 30 Days #60 tab 03/14/22 [Rx] Diclofenac Sodium [Voltaren] 75 mg PO BID 30 Days #60 tab 03/14/22 [Rx] Docusate [Colace] 100 mg PO BID #60 capsule 03/14/22 [Rx] HYDROcodone/APAP 5-325MG [Greenleaf 5-325] 1 - 2 tab PO Q6HR PRN 32 Days #7 tab 03/14/22 [Rx] Omeprazole 40 mg PO DAILY 30 Days #30 cap 03/14/22 [Rx] Follow up Appointment(s)/Referral(s): Colby Hsieh MD [Medical Doctor] - 2 Weeks Activity/Diet/Wound Care/Special Instructions: Weight bear to tolerance on operative extremity with a walker. Keep operative dressing intact until follow-up appointment in the office. Call the office if dressing becomes saturated or falls off. May shower over dressing. Take pain medications as prescribed. Take aspirin 81mg BID x 4 weeks for blood clot prevention. Follow-up in the office in two weeks at [facility]. Call the office with any questions or concerns, Discharge Disposition: HOME WITH HOME HEALTH SERVICES
[2022-03-14] MEDS ORDERED: OXcarbazepine 300 MG TAB PO SCH (09:00)
[2022-03-14] MEDS: ASPIRIN 81 MG PO SCH (09:46)
[2022-03-14] MEDS: CYCLOBENZAPRINE 10 MG TAB PO SCH (09:46)
[2022-03-14 10:33] LABS: Basophils # (A) 0.02 X 10*3/uL (0.00-0.10); Basophils % (A) 0.1 %; Eosinophils # (A) 0 X 10*3/uL (0.04-0.35); Eosinophils % (A) 0 %; HCT 21.8 % (37.2-46.3); HGB 7.1 g/dL (12.0-15.0); Immature Grans, Automated 0.4 %; Lymphocytes # (A) 1.18 X 10*3/uL (0.90-5.00); Lymphocytes % (A) 8.2 %; MCH 30.7 pg (27.0-32.0); MCHC 32.6 g/dL (32.0-37.0); MCV 94.4 fL (80.0-97.0); Mean Platelet Volume 9.2 fL (9.5-12.2); Monocytes # (A) 0.79 X 10*3/uL (0.20-1.00); Monocytes % (A) 5.5 %; NRBC Per 100 WBC 0 /100 WBCS (0.0-0.0); Neutrophils # (A) 12.35 X 10*3/uL (1.80-7.70); Neutrophils % (A) 85.8 %; Platelet Count 236 X 10*3/uL (140-440); RBC 2.31 X 10*6/uL (4.10-5.20); RDW 13.6 % (11.5-14.5)
[2022-03-14 12:54] LABS: HCT 24.1 % (34.0-46.0); MCH 31.8 pg (25.0-35.0); MCHC 34.4 g/dL (31.0-37.0); MCV 92.2 fL (80.0-100.0); Mean Platelet Volume 7.8; Platelet Count 311 k/uL (150-450); RBC 2.61 m/uL (3.80-5.40); RDW 13.9 % (11.5-15.5); WBC 13.2 k/uL (3.8-10.6)
[2022-03-14 13:06] LABS: HGB 8.3 gm/dL (11.4-16.0)
--- NOTE | 2022-03-14 21:54 | P.ANPRN ---
Procedure Note - Anesthesia - Nerve Block Performed Right Soham Single Time Out Performed: Yes Date of Procedure: 03/13/22 Procedure Start Time: 11:55 Procedure Stop Time: 12:02 Location of Patient: PreOp Indication: Acute Post-Operative Pain, Requested by Surgeon Sedation Type: Sedate with meaningful contact maintained Preparation: Sterile Prep Position: Supine Needle Types: Pajunk Needle Gauge: 21 Ultrasound used to visualize needle placement: Yes Ultrasound used to observe medication spread: Yes Blood Aspirated: No Pain Paresthesia on Injection Noted: No Resistance on Injection: Normal Image Stored and Saved: Yes Events: Uneventful and Well Tolerated (ropi .5% 20cc plus dexamethasone 4mg)
== END 2022-03-14 14:56 | disposition home health service (06) ==
LOC: OR 10:42 → 4SSUR 15:16 → OR 03-14 14:56
PROVIDERS: ATTEND Orthopaedic Surgery
DX: M16.11 Unilateral primary osteoarthritis, right hip (principal); M87.051 Idiopathic aseptic necrosis of right femur; M87.9 Osteonecrosis, unspecified; Z96.641 Presence of right artificial hip joint; E78.5 Hyperlipidemia, unspecified; E03.9 Hypothyroidism, unspecified; R26.9 Unspecified abnormalities of gait and mobility; Z88.2 Allergy status to sulfonamides; F17.210 Nicotine dependence, cigarettes, uncomplicated; Z79.890 Hormone replacement therapy; Z79.899 Other long term (current) drug therapy; Z79.82 Long term (current) use of aspirin
CPT/HCPCS: 27130; 97162; 64447; 86900; 86901; 88305; 85025; 85027; 86850; 88311; 73501; C1776; J2250; J1100 ×2; J0690 ×2; J2405; J1170; J2795; J1885; J2704

== ENCOUNTER 2022-03-16 01:18 | Emergency (ER) | payer MEDICARE ==
[2022-03-16 01:32] VITALS: BP 104/68; PULSE 89; RESP 18; TEMP 98.2
--- NOTE | 2022-03-16 03:41 | ED ---
General Adult HPI - General Chief complaint: Skin/Abscess/Foreign Body Stated complaint: Incision site bleeding Time Seen by Provider: 03/16/22 03:02 Source: EMS Mode of arrival: EMS Limitations: no limitations - History of Present Illness Initial comments: Patient has noted drainage from the site of her right hip surgery for [address] Hsieh. She has not had any systemic symptoms, no fever or chills. No chest pain, dyspnea or cough. No new pain or swelling. She does note that her leg has some swelling of the surgery but this has not changed. She states she is ambulating. -: hour(s) Location: right, lower extremity Severity scale (1-10): 0 Consistency: now resolved Improves with: none Worsens with: none Associated Symptoms: denies other symptoms - Related Data Home Medications Medication Instructions Recorded Confirmed FLUoxetine HCL [Fluoxetine HCl] 20 mg PO HS 04/05/14 03/11/22 Simvastatin 20 mg PO HS 04/05/14 03/13/22 nadoloL [Nadolol] 20 mg PO DAILY 04/05/14 03/11/22 Cyclobenzaprine HCl 10 mg PO BID 08/30/16 03/11/22 Levothyroxine Sodium [Synthroid] 50 mcg PO QAM 08/30/16 03/11/22 Montelukast Sodium 10 mg PO HS 08/30/16 03/13/22 Amitriptyline HCl 10 - 20 mg PO HS 02/22/19 03/13/22 HYDROcodone/APAP 7.5-325MG [[place] 1 tab PO Q6HR PRN 03/11/22 03/13/22 7.5-325] OXcarbazepine [Trileptal] 300 mg PO DAILY 03/11/22 03/11/22 Pantoprazole [Protonix] 40 mg PO DAILY 03/11/22 03/13/22 guaiFENesin [Mucinex] 600 mg PO Q12H PRN 03/11/22 03/13/22 Previous Rx's Medication Instructions Recorded Aspirin 81 mg PO BID 30 Days #60 tab 03/14/22 Diclofenac Sodium [Voltaren] 75 mg PO BID 30 Days #60 tab 03/14/22 Docusate [Colace] 100 mg PO BID #60 capsule 03/14/22 HYDROcodone/APAP 5-325MG [[place] 1 - 2 tab PO Q6HR PRN 32 Days #7 03/14/22 5-325] tab Omeprazole 40 mg PO DAILY 30 Days #30 cap 03/14/22 Allergies Allergy/AdvReac Type Severity Reaction Status Date / Time Sulfa (Sulfonamide Allergy Unknown Verified 03/16/22 01:32 Antibiotics) Childhood Review of Systems ROS Statement: Those systems with pertinent positive or pertinent negative responses have been documented in the HPI. ROS Other: All systems not noted in ROS Statement are negative. Constitutional: Denies: fever, chills Respiratory: Denies: cough, dyspnea Cardiovascular: Denies: chest pain, palpitations, syncope Gastrointestinal: Denies: abdominal pain Skin: Denies: rash Neurological: Denies: weakness, numbness Hematological/Lymphatic: Denies: easy bleeding Past Medical History Past Medical History: GERD/Reflux, Hyperlipidemia, Osteoarthritis (OA), Thyroid Disorder Additional Past Medical History / Comment(s): Pain lower lumber region, hx migraines, last 2 yrs ago, urinary leakage, difficulty swallowing. History of Any Multi-Drug Resistant Organisms: None Reported Past Surgical History: Appendectomy, Joint Replacement, Orthopedic Surgery Additional Past Surgical History / Comment(s): Bunionectomy, PAIN CLINIC INJECTIONS. Past Anesthesia/Blood Transfusion Reactions: Motion Sickness Past Psychological History: No Psychological Hx Reported Smoking Status: Former smoker Past Alcohol Use History: Daily Past Drug Use History: None Reported - Past Family History Father Family Medical History: Cancer Additional Family Medical History / Comment(s): LUNG CANCER. Mother Family Medical History: COPD General Exam Limitations: no limitations General appearance: alert, in no apparent distress Head exam: Present: atraumatic, normocephalic Respiratory exam: Present: normal lung sounds bilaterally. Absent: respiratory distress, wheezes, rales, rhonchi, stridor Cardiovascular Exam: Present: regular rate, normal rhythm, normal heart sounds. Absent: systolic murmur, diastolic murmur, rubs, gallop Neurological exam: Present: alert. Absent: motor sensory deficit Skin exam: Present: warm, dry, normal color, other (Patient has a small puncture wound under the dressing which has no active bleeding. No purulent drainage. No tenderness, erythema or warmth.). Absent: rash Course Vital Signs 03/16/22 01:30 Temperature 98.2 F Pulse Rate 89 Respiratory 18 Rate Blood Pressure 104/68 O2 Sat by Pulse 99 Oximetry Medical Decision Making - Medical Decision Making Patient is 67-year-old woman here with moderate amount of serosanguineous drainage which had come from the right thigh of the surgical dressings. The drainage has stopped. There is no dehiscence. There is no signs of infection. A new dressing is applied to follow her surgeon. Discussed appropriate further care and follow-up as well as return parameters. Disposition Clinical Impression: Encounter for postoperative wound check Disposition: HOME SELF-CARE Condition: Good Instructions (If sedation given, give patient instructions): Postoperative Bleeding (ED) Is patient prescribed a controlled substance at d/c from ED?: No Referrals: Paty Ortiz DO [Primary Care Provider] - 1-2 days Colby Hsieh MD [Medical Doctor] - 1-2 days
== END 2022-03-16 03:58 | disposition home or self-care (01) ==
LOC: EC 01:18
DX: Z48.810 Encounter for surgical aftercare following surgery on the sense organs (principal); E78.5 Hyperlipidemia, unspecified; K21.9 Gastro-esophageal reflux disease without esophagitis; M19.90 Unspecified osteoarthritis, unspecified site; E07.9 Disorder of thyroid, unspecified; Z79.1 Long term (current) use of non-steroidal anti-inflammatories (NSAID); Z79.890 Hormone replacement therapy; Z88.2 Allergy status to sulfonamides; Z87.891 Personal history of nicotine dependence; Z79.899 Other long term (current) drug therapy
CPT/HCPCS: 99283

== ENCOUNTER → 2022-12-24 | Outpatient (CLI) | payer MEDICARE ==
[~2022-12-24] MED LIST changes: -ACETAMINOPHEN TAB 500 MG TAB PO PRN; -DEXAMETHASONE SOD PHOSPHATE 10 MG/ML 1 ML VIAL IV PRN; -DEXAMETHASONE SOD PHOSPHATE 4 MG/ML 1 ML VIAL IV ONE; -DOCUSATE 100 MG CAP PO PRN; -FAMOTIDINE 20 MG/2 ML VIAL IVP PRN; -HYDROmorphone 0.5 MG/0.5 ML SYRINGE IVP PRN; +IRON SUCROSE 200 MG in SODIUM CHLORIDE 0.9% 100 ML IVPB ONE; -KETOROLAC 15 MG/ML 1 ML VIAL IVP PRN; -ONDANSETRON 4 MG/2 ML VIAL IVP ONE; -ONDANSETRON 4 MG/2 ML VIAL IVP PRN; -ROPIVACAINE/EPI/CLONIDINE/KET 50 ML SYRINGE MISCELLANE PRN; +SODIUM CHLORIDE 0.9% 500 ML 500 ML in EMPTY BAG 1 BAG IV PRN; -TRANEXAMIC ACID IN NACL,ISO-OS 1,000 MG in SALINE 1 100ML.BAG IVPB PRN; -oxyCODONE ER 10 MG TAB.ER.12H PO PRN
[2022-12-24 11:25] VITALS: BP 134/73; PULSE 67; RESP 15; TEMP 97.9
== END ==
LOC: PROCWHC3 10:56
PROVIDERS: ATTEND Family Medicine
DX: D50.9 Iron deficiency anemia, unspecified (principal)
CPT/HCPCS: 96365; J1756

== ENCOUNTER → 2023-07-17 | Outpatient (CLI) | payer MEDICARE ==
--- NOTE | 2023-07-18 10:47 | MM ---
Reason for Exam: Screening (asymptomatic). Last mammogram was performed 2 year(s) and 8 month(s) ago. Patient History: Menarche at age 12. Patient has no children. Postmenopausal. Hormonal Contraceptives for 6 months. Risk Values: Lani 5 year model risk: 1.9%. NCI Lifetime model risk: 6.2%. Prior Study Comparison: 04/09/2018 Bilateral Screening Mammogram, [facility]. 04/14/2018 Left Diagnostic Mammogram, [facility]. 11/23/2020 Bilateral Screening Mammogram, [facility]. Tissue Density: The breasts are heterogeneously dense, which may obscure small masses. Findings: Analyzed By CAD. Right breast: There is no suspicious group of microcalcifications or new suspicious mass. Left breast: There is no suspicious group of microcalcifications or new suspicious mass. Overall Assessment: Negative, BI-RAD 1 Management: Screening Mammogram of both breasts in [address] [facility] will attempt to contact patient to return for supplemental views and ultrasound if indicated. Patient should continue monthly self-breast exams. A clinical breast exam by your physician is recommended on an annual basis. This exam should not preclude additional follow-up of suspicious palpable abnormalities. Note on Lani scores and lifetime risk: 1. A Lani score greater than 3% is considered moderate risk. If this is the case, consider specialist referral to assess eligibility for a risk reducing agent. 2. If overall lifetime risk for the development of breast cancer is 20% or higher, the patient may qualify for future screening with alternating mammogram and breast MRI. Electronically signed and approved by: Kyle Prather DO
== END | disposition home or self-care (01) ==
LOC: RADMAMWWP 11:19
PROVIDERS: ATTEND Family Medicine
DX: Z12.31 Encounter for screening mammogram for malignant neoplasm of breast (principal); Z78.0 Asymptomatic menopausal state
CPT/HCPCS: 77063; 77067

== ENCOUNTER 2024-09-04 17:27 | Emergency (ER) | payer MEDICARE ==
[2024-09-04 17:33] VITALS: RESP 18; TEMP 98.5
--- NOTE | 2024-09-04 19:00 | ED ---
General Adult HPI - General Chief complaint: Weakness Stated complaint: Weakness/Numbness Time Seen by Provider: 09/04/24 17:53 Source: patient Mode of arrival: ambulatory Limitations: no limitations - History of Present Illness Initial comments: This patient is a 69-year-old woman who comes here from local urgent care. The patient had gone there to have evaluation of generalized weakness and fatigue, dizziness, and tingling of the bilateral extremities. Symptoms getting worse over the past 1 to 2 days. The patient also notes that she had some recent lab tests that showed that her sodium had been low. The patient not having any focal symptoms. -: days(s) Severity scale (1-10): 0 Consistency: constant Improves with: none Worsens with: none Associated Symptoms: weakness Treatments Prior to Arrival: none - Related Data Home Medications Medication Instructions Recorded Confirmed FLUoxetine HCL [Fluoxetine HCl] 20 mg PO DAILY 04/05/14 09/22/24 Simvastatin 40 mg PO HS 04/05/14 09/22/24 nadoloL [Nadolol] 20 mg PO DAILY 04/05/14 09/22/24 Levothyroxine Sodium [Synthroid] 50 mcg PO DAILY 08/30/16 09/22/24 Amitriptyline HCl 20 mg PO HS 02/22/19 09/22/24 Vitamin B Complex/Folic Acid 0.4 mg PO DAILY 12/24/22 09/22/24 [Vitamin B Complex] Budesonide 0.5 mg INHALATION RT-BID 09/22/24 09/22/24 Fluticasone/Umeclidin/Vilanter 1 puff INHALATION RT-DAILY 09/22/24 09/22/24 [Trelegy Ellipta 200-62.5-25] Ondansetron Odt [Zofran ODT] 4 mg PO Q6H PRN 09/22/24 09/22/24 Pantoprazole [Protonix] 40 mg PO DAILY 09/22/24 09/22/24 SUMAtriptan succinate [Imitrex] 100 mg PO BID PRN 09/22/24 09/22/24 Previous Rx's Medication Instructions Recorded Acetaminophen Tab [Tylenol] 650 mg PO Q6HR PRN tab 09/23/24 Magnesium Oxide [Magox 400] 400 mg PO DAILY #30 tab 09/23/24 Allergies Allergy/AdvReac Type Severity Reaction Status Date / Time Sulfa (Sulfonamide Allergy Unknown Verified 09/22/24 20:10 Antibiotics) Childhood Review of Systems ROS Statement: Those systems with pertinent positive or pertinent negative responses have been documented in the HPI. ROS Other: All systems not noted in ROS Statement are negative. Constitutional: Reports: weakness. Denies: fever, chills Eyes: Denies: vision change Respiratory: Denies: cough, dyspnea Cardiovascular: Denies: chest pain, palpitations, edema, syncope Endocrine: Reports: fatigue Gastrointestinal: Denies: abdominal pain, nausea, vomiting, diarrhea Genitourinary: Denies: dysuria, hematuria Musculoskeletal: Denies: back pain Skin: Denies: rash Neurological: Reports: paresthesias. Denies: headache, weakness, numbness Past Medical History Past Medical History: GERD/Reflux, Hyperlipidemia, Osteoarthritis (OA), Thyroid Disorder Additional Past Medical History / Comment(s): Pain lower lumber region, hx migraines, last 2 yrs ago, urinary leakage, difficulty swallowing. History of Any Multi-Drug Resistant Organisms: None Reported Past Surgical History: Appendectomy, Joint Replacement, Orthopedic Surgery Additional Past Surgical History / Comment(s): Bunionectomy, PAIN CLINIC INJECTIONS. Past Anesthesia/Blood Transfusion Reactions: Motion Sickness Past Psychological History: No Psychological Hx Reported Smoking Status: Light tobacco smoker Past Alcohol Use History: Occasional - Past Family History Father Family Medical History: Cancer Additional Family Medical History / Comment(s): LUNG CANCER. Mother Family Medical History: COPD General Exam Limitations: no limitations General appearance: alert, in no apparent distress Head exam: Present: atraumatic, normocephalic Eye exam: Present: normal appearance, PERRL. Absent: scleral icterus, conjunctival injection, nystagmus ENT exam: Present: normal oropharynx Neck exam: Present: normal inspection, full ROM Respiratory exam: Present: normal lung sounds bilaterally. Absent: respiratory distress, wheezes, rales, rhonchi, stridor, accessory muscle use Cardiovascular Exam: Present: regular rate, normal rhythm, normal heart sounds. Absent: systolic murmur, diastolic murmur, rubs, gallop GI/Abdominal exam: Present: soft. Absent: distended, tenderness, guarding, rebound, rigid, mass Extremities exam: Present: normal inspection, normal capillary refill. Absent: pedal edema, calf tenderness Back exam: Present: normal inspection. Absent: CVA tenderness (R), CVA tenderness (L) Neurological exam: Present: alert, oriented X3, CN II-XII intact. Absent: motor sensory deficit Skin exam: Present: warm, dry, intact, normal color. Absent: rash Course Vital Signs 09/04/24 09/04/24 17:29 20:29 Temperature 98.5 F Pulse Rate 74 68 Respiratory 18 18 Rate Blood Pressure 181/78 165/75 O2 Sat by Pulse 99 100 Oximetry EKG Findings - EKG Results: EKG: interpreted by RADHAD, sinus rhythm (Rate 65 bpm), normal axis, normal QRS, normal ST/T, no acute changes Medical Decision Making - Medical Decision Making Was pt. sent in by a medical professional or institution (, PA, M1A1 TANK CREWMAN, urgent care, hospital, or jail...) When possible be specific @ -[No] Did you speak to anyone other than the patient for history (EMS, parent, family, police, friend...)? What history was obtained from this source @ -[No] Did you review nursing and triage notes (agree or disagree)? Why? @ -[I reviewed and agree with nursing and triage notes] Were old charts reviewed (outside hosp., previous admission, EMS record, old EKG, old radiological studies, urgent care reports/EKG's, jail records)? Report findings @ -[No old charts were reviewed] Differential Diagnosis (chest pain, altered mental status, abdominal pain women, abdominal pain men, vaginal bleeding, weakness, fever, dyspnea, syncope, headache, dizziness, GI bleed, back pain, seizure, CVA, palpatations, mental health, musculoskeletal)? @ -[Differential Dizziness: Benign paroxysmal positional Vertigo, Meniere's disease, otitis media, acoustic neuroma, vertebrobasilar insufficiency, cerebellar stroke, encephalitis, hypovolemic, arrhythmia, coronary artery syndrome, anemia, this is not meant to be an all-inclusive list EKG interpreted by me (3pts min.). @ -[As above] X-rays interpreted by me (1pt min.). @ -[None done] CT interpreted by me (1pt min.). @ -[None done] U/S interpreted by me (1pt. min.). @ -[None done] What testing was considered but not performed or refused? (CT, X-rays, U/S, labs)? Why? @ -[None] What meds were considered but not given or refused? Why? @ -[None] Did you discuss the management of the patient with other professionals (professionals i.e. , PA, M1A1 TANK CREWMAN, lab, RT, psych nurse, social service agency director, picture hanger, teacher, founder chairman and chief creative officer, briefcase sewer)? Give summary @ -[No] Was smoking cessation discussed for >3mins.? @ -[No] Was critical care preformed (if so, how long)? @ -[No] Were there social determinants of health that impacted care today? How? (Homelessness, low income, unemployed, alcoholism, drug addiction, transpo rtation, low edu. Level, literacy, decrease access to med. care, usp, rehab)? @ -[No] Was there de-escalation of care discussed even if they declined (Discuss DNR or withdrawal of care, Hospice)? DNR status @ -[No] What co-morbidities impacted this encounter? (DM, HTN, Smoking, COPD, CAD, Cancer, CVA, ARF, Chemo, Hep., AIDS, mental health diagnosis, sleep apnea, morbid obesity)? @ -[None] Was patient admitted / discharged? Hospital course, mention meds given and route, prescriptions, significant lab abnormalities, going to OR and other pertinent info. @ -[Patient is 69-year-old woman here with weakness, fatigue, paresthesias. The patient's workup does reveal some mild hypocalcemia and this was supplemented. The patient stable to continue as outpatient, discussed appropriate further care and follow-up as well as return parameters. Undiagnosed new problem with uncertain prognosis? @ -[No] Drug Therapy requiring intensive monitoring for toxicity (Heparin, Nitro, Insulin, Cardizem)? @ -[No] Were any procedures done? @ -[No] Diagnosis/symptom? @ -[Generalized weakness and fatigue Paresthesias hypocalcemia Acute, or Chronic, or Acute on Chronic? @ -Acute Uncomplicated (without systemic symptoms) or Complicated (systemic symptoms)? @ -[Uncomplicated Side effects of treatment? @ -[No] Exacerbation, Progression, or Severe Exacerbation? @ -[No] Poses a threat to life or bodily function? How? (Chest pain, USA, [place], pneumonia, PE, COPD, DKA, ARF, appy, cholecystitis, CVA, Diverticulitis, Homicidal, Suicidal, threat to staff... and all critical care pts) @ -[No] All treatments are based on ideal body weight as in ED triage - Lab Data Result diagrams: 09/04/24 18:44 09/04/24 18:44 Lab Results 09/04/24 09/04/24 Range/Units 18:44 18:44 WBC 7.83 (4.50-10.00) 10*3/uL RBC 3.54 L (4.10-5.20) 10*6/uL Hgb 12.6 (12.0-15.0) g/dL Hct 35.9 L (37.2-46.3) % MCV 101.4 H (80.0-97.0) fL MCH 35.6 H (27.0-32.0) pg MCHC 35.1 (32.0-37.0) g/dL Plt Count 277 (140-440) 10*3/uL MPV 9.0 L (9.5-12.2) fL Immature Gran % (Auto) 0.4 % Neutrophils % 68.1 % Lymphocytes % 24.1 % Monocytes % 5.5 % Eosinophils % 1.4 % Basophils % 0.5 % Immature Gran # 0.03 (0.00-0.04) 10*3/uL Neutrophils # 5.33 (1.80-7.70) 10*3/uL Lymphocytes # 1.89 (0.90-5.00) 10*3/uL Monocytes # 0.43 (0.20-1.00) 10*3/uL Eosinophils # 0.11 (0.04-0.35) 10*3/uL Basophils # 0.04 (0.00-0.10) 10*3/uL Sodium 140 (137-145) mmol/L Potassium 3.5 (3.5-5.1) mmol/L Chloride 104 (98-107) mmol/L Carbon Dioxide 26 (22-30) mmol/L Anion Gap 10 mmol/L BUN 9 (7-17) mg/dL Creatinine 0.53 (0.52-1.04) mg/dL Est GFR (CKD-EPI)AfAm >90 (>60 ml/min/1.73 sqM) Est GFR (CKD-EPI)NonAf >90 (>60 ml/min/1.73 sqM) Glucose 94 (74-99) mg/dL Calcium 7.3 L (8.4-10.2) mg/dL Total Bilirubin 0.4 (0.2-1.3) mg/dL AST 31 (14-36) U/L ALT 23 (4-34) U/L Alkaline Phosphatase 40 (38-126) U/L Total Protein 6.8 (6.3-8.2) g/dL Albumin 4.6 (3.5-5.0) g/dL TSH 0.925 (0.465-4.680) mIU/L Disposition Clinical Impression: Paresthesia Disposition: HOME SELF-CARE Instructions (If sedation given, give patient instructions): Hypocalcemia (ED) Is patient prescribed a controlled substance at d/c from ED?: No Referrals: Paty Ortiz DO [Primary Care Provider] - 1-2 days
[2024-09-04 19:08] LABS: Basophils # (A) 0.04 10*3/uL (0.00-0.10); Basophils % (A) 0.5 %; Eosinophils # (A) 0.11 10*3/uL (0.04-0.35); Eosinophils % (A) 1.4 %; HCT 35.9 % (37.2-46.3); HGB 12.6 g/dL (12.0-15.0); Lymphocytes # (A) 1.89 10*3/uL (0.90-5.00); Lymphocytes % (A) 24.1 %; MCH 35.6 pg (27.0-32.0); MCHC 35.1 g/dL (32.0-37.0); MCV 101.4 fL (80.0-97.0); Monocytes # (A) 0.43 10*3/uL (0.20-1.00); Monocytes % (A) 5.5 %; Neutrophils # (A) 5.33 10*3/uL (1.80-7.70); Neutrophils % (A) 68.1 %; Platelet Count 277 10*3/uL (140-440); RBC 3.54 10*6/uL (4.10-5.20); WBC 7.83 10*3/uL (4.50-10.00)
[2024-09-04 19:22] LABS: ALT 23 U/L (4-34); AST 31 U/L (14-36); African American GFR (CKD) >90 (>60 ml/min/1.73 sqM); Albumin 4.6 g/dL (3.5-5.0); Alkaline Phosphatase 40 U/L (38-126); Anion Gap 10 mmol/L; Blood Urea Nitrogen 9 mg/dL (7-17); Calcium 7.3 mg/dL (8.4-10.2); Carbon Dioxide 26 mmol/L (22-30); Chloride 104 mmol/L (98-107); Glucose 94 mg/dL (74-99); Non-African American GFR(CKD) >90 (>60 ml/min/1.73 sqM); Potassium 3.5 mmol/L (3.5-5.1); Sodium 140 mmol/L (137-145); Total Bilirubin 0.4 mg/dL (0.2-1.3); Total Protein 6.8 g/dL (6.3-8.2)
[2024-09-04 20:30] VITALS: BP 165/75; PULSE 68
[2024-09-04] MEDS: CALCIUM GLUCONATE IN NACL 1 GM in SALINE 1 100ML.BAG IVPB ONE (20:49)
== END 2024-09-04 20:52 | disposition home or self-care (01) ==
LOC: EC 17:27
DX: R20.2 Paresthesia of skin (principal); R53.1 Weakness; R53.83 Other fatigue; F17.210 Nicotine dependence, cigarettes, uncomplicated; Z88.2 Allergy status to sulfonamides
CPT/HCPCS: 36415; 80053; 84443; 85025; 93005; 99284

== ENCOUNTER 2024-09-22 16:10 | Observation (INO) | payer MEDICARE ==
--- NOTE | 2024-09-22 17:54 | ED ---
Recheck HPI - General Chief Complaint: Recheck/Abnormal Lab/Rx Stated Complaint: electrolyte imbalance Time Seen by Provider: 09/22/24 17:17 Source: patient, RN notes reviewed Mode of arrival: ambulatory Limitations: no limitations - History of Present Illness Initial Comments: 69-year-old female with history of hypothyroidism, and hypertension presenting to the emergency room with referral by primary care provider for concerns of hypomagnesemia and hypokalemia. Patient states that over the weekend she went to [facility] where she states she was feeling dizzy and nauseated where she was admitted for low potassium and magnesium. Patient had her labs rechecked yesterday and today she was instructed report to the emergency department. Patient states that over the past few weeks she has been feeling generally tired. She also states that she has been having bilateral upper extremity paresthesias. Patient states that she has 3-6 beers per day. denies history of alcohol withdrawal. - Related Data Home Medications Medication Instructions Recorded Confirmed FLUoxetine HCL [Fluoxetine HCl] 20 mg PO DAILY 04/05/14 09/22/24 Simvastatin 40 mg PO HS 04/05/14 09/22/24 nadoloL [Nadolol] 20 mg PO DAILY 04/05/14 09/22/24 Levothyroxine Sodium [Synthroid] 50 mcg PO DAILY 08/30/16 09/22/24 Amitriptyline HCl 20 mg PO HS 02/22/19 09/22/24 Vitamin B Complex/Folic Acid 0.4 mg PO DAILY 12/24/22 09/22/24 [Vitamin B Complex Tablet] Budesonide 0.5 mg INHALATION RT-BID 09/22/24 09/22/24 Fluticasone/Umeclidin/Vilanter 1 puff INHALATION RT-DAILY 09/22/24 09/22/24 [Trelegy Ellipta 200-62.5-25] Magnesium Oxide [Magox 400] 400 mg PO DAILY 09/22/24 09/22/24 Ondansetron Odt [Zofran Odt] 4 mg PO Q6H PRN 09/22/24 09/22/24 Pantoprazole [Protonix] 40 mg PO DAILY 09/22/24 09/22/24 SUMAtriptan succinate [Imitrex] 100 mg PO BID PRN 09/22/24 09/22/24 Allergies Allergy/AdvReac Type Severity Reaction Status Date / Time Sulfa (Sulfonamide Allergy Unknown Verified 09/22/24 20:10 Antibiotics) Childhood Review of Systems ROS Statement: Those systems with pertinent positive or pertinent negative responses have been documented in the HPI. ROS Other: All systems not noted in ROS Statement are negative. Past Medical History Past Medical History: GERD/Reflux, Hyperlipidemia, Osteoarthritis (OA), Thyroid Disorder Additional Past Medical History / Comment(s): Pain lower lumber region, hx migraines, last 2 yrs ago, urinary leakage, difficulty swallowing. History of Any Multi-Drug Resistant Organisms: None Reported Past Surgical History: Appendectomy, Joint Replacement, Orthopedic Surgery Additional Past Surgical History / Comment(s): Bunionectomy, PAIN CLINIC INJECTIONS. Past Anesthesia/Blood Transfusion Reactions: Motion Sickness Past Psychological History: No Psychological Hx Reported Smoking Status: Light tobacco smoker Past Alcohol Use History: Occasional - Past Family History Father Family Medical History: Cancer Additional Family Medical History / Comment(s): LUNG CANCER. Mother Family Medical History: COPD General Exam Limitations: no limitations Respiratory exam: Present: normal lung sounds bilaterally. Absent: respiratory distress, wheezes, rales, rhonchi, stridor Cardiovascular Exam: Present: regular rate, normal rhythm, normal heart sounds. Absent: systolic murmur, diastolic murmur, rubs, gallop, clicks GI/Abdominal exam: Present: soft, normal bowel sounds. Absent: distended, tenderness, guarding, rebound, rigid Extremities exam: Present: normal inspection, full ROM, normal capillary refill. Absent: tenderness, pedal edema, joint swelling, calf tenderness Back exam: Present: normal inspection Skin exam: Present: warm, dry, intact, normal color. Absent: rash Course Vital Signs 09/22/24 09/22/24 09/22/24 16:50 18:35 19:54 Temperature 98.5 F 97.7 F Pulse Rate 88 60 64 Pulse Rate [ Pulse Oximetery ] Respiratory 20 18 17 Rate Blood Pressure 118/70 144/67 145/86 Blood Pressure [Right Arm] O2 Sat by Pulse 98 98 97 Oximetry 09/22/24 09/22/24 20:53 21:12 Temperature 98.7 F 97.8 F Pulse Rate 62 Pulse Rate [ 65 Pulse Oximetery ] Respiratory 18 15 Rate Blood Pressure 121/67 Blood Pressure 127/72 [Right Arm] O2 Sat by Pulse 98 96 Oximetry Medical Decision Making - Medical Decision Making Was pt. sent in by a medical professional or institution (, LASHELL, LOGISTICAL ENGINEER, urgent care, hospital, or usp...) When possible be specific @ -No Did you speak to anyone other than the patient for history (EMS, parent, family, police, friend...)? What history was obtained from this source @ -No Did you review nursing and triage notes (agree or disagree)? Why? @ -I reviewed and agree with nursing and triage notes Were old charts reviewed (outside hosp., previous admission, EMS record, old EKG, old radiological studies, urgent care reports/EKG's, usp records)? Report findings @ -No old charts were reviewed Differential Diagnosis (chest pain, altered mental status, abdominal pain women, abdominal pain men, vaginal bleeding, weakness, fever, dyspnea, syncope, headache, dizziness, GI bleed, back pain, seizure, CVA, palpatations, mental health, musculoskeletal)? @ -Differential Weakness: Hypoglycemia, shock, sepsis, hyponatremia, anemia, infection, GA, ETOH, adverse medicine reaction, overdose, stroke, this is not meant to be an all-inclusive list. EKG interpreted by me (3pts min.). @ -Completed at 1744 sinus rhythm with a ventricular rate of 63, WA interval 156, QRS 77, QT 399, QTc 406. X-rays interpreted by me (1pt min.). @ -None done CT interpreted by me (1pt min.). @ -None done U/S interpreted by me (1pt. min.). @ -None done What testing was considered but not performed or refused? (CT, X-rays, U/S, labs)? Why? @ -None What meds were considered but not given or refused? Why? @ -None Did you discuss the management of the patient with other professionals (professionals i.e. LASHELL Fuller, LOGISTICAL ENGINEER, lab, RT, psych nurse, social services aide, back tender cylinder, teacher, mail officer, rn case mgr)? Give summary @ -I spoke with Dr. Piper, was agreed to meet the patient for hypomagnesemia. Was smoking cessation discussed for >3mins.? @ -No Was critical care preformed (if so, how long)? @ -No Were there social determinants of health that impacted care today? How? (Homelessness, low income, unemployed, alcoholism, drug addiction, transportation, low edu. Level, literacy, decrease access to med. care, usp, rehab)? @ -No Was there de-escalation of care discussed even if they declined (Discuss DNR or withdrawal of care, Hospice)? DNR status @ -No What co-morbidities impacted this encounter? (DM, HTN, Smoking, COPD, CAD, Cancer, CVA, ARF, Chemo, Hep., AIDS, mental health diagnosis, sleep apnea, morbid obesity)? @ -None Was patient admitted / discharged? Hospital course, mention meds given and route, prescriptions, significant lab abnormalities, going to OR and other pert inent info. @ -Admitted. 69-year-old female presenting to the emergency department referral from PCP for concerns of low potassium and magnesium. Overall patient is well- appearing and no signs of distress on examination. Her blood work is concerning for severe hypomagnesemia with a magnesium of 0.7. Hypercalcemia with a calcium of 7.4. Potassium within normal at 3.9. Patient has a mildly low glucose at 65 is provided with juice. Patient provided with oral and IV with supplementation of magnesium admitted to the hospital for further evaluation and repeat testing. Case discussed with Dr. Marlow. Undiagnosed new problem with uncertain prognosis? @ -No Drug Therapy requiring intensive monitoring for toxicity (Heparin, Nitro, Insulin, Cardizem)? @ -No Were any procedures done? @ -No Diagnosis/symptom? @ -hypomagensemia, hypercalcemia Acute, or Chronic, or Acute on Chronic? @ -acute Uncomplicated (without systemic symptoms) or Complicated (systemic symptoms)? @ -complicated Side effects of treatment? @ -No Exacerbation, Progression, or Severe Exacerbation? @ -No Poses a threat to life or bodily function? How? (Chest pain, USA, [place], pneumonia, PE, COPD, DKA, ARF, appy, cholecystitis, CVA, Diverticulitis, Homicidal, Suicidal, threat to staff... and all critical care pts) @ -No - Lab Data Result diagrams: 09/22/24 18:21 09/22/24 18:21 Lab Results 09/22/24 09/22/24 Range/Units 18:21 18:21 WBC 8.59 (4.50-10.00) 10*3/uL RBC 3.59 L (4.10-5.20) 10*6/uL Hgb 12.5 (12.0-15.0) g/dL Hct 36.4 L (37.2-46.3) % MCV 101.4 H (80.0-97.0) fL MCH 34.8 H (27.0-32.0) pg MCHC 34.3 (32.0-37.0) g/dL Plt Count 288 (140-440) 10*3/uL MPV 9.3 L (9.5-12.2) fL Immature Gran % (Auto) 0.5 % Neutrophils % 55.7 % Lymphocytes % 34.9 % Monocytes % 6.5 % Eosinophils % 1.7 % Basophils % 0.7 % Immature Gran # 0.04 (0.00-0.04) 10*3/uL Neutrophils # 4.78 (1.80-7.70) 10*3/uL Lymphocytes # 3.00 (0.90-5.00) 10*3/uL Monocytes # 0.56 (0.20-1.00) 10*3/uL Eosinophils # 0.15 (0.04-0.35) 10*3/uL Basophils # 0.06 (0.00-0.10) 10*3/uL Sodium 140 (137-145) mmol/L Potassium 3.9 (3.5-5.1) mmol/L Chloride 103 (98-107) mmol/L Carbon Dioxide 29 (22-30) mmol/L Anion Gap 8 mmol/L BUN 6 L (7-17) mg/dL Creatinine 0.46 L (0.52-1.04) mg/dL Est GFR (CKD-EPI)AfAm >90 (>60 ml/min/1.73 sqM) Est GFR (CKD-EPI)NonAf >90 (>60 ml/min/1.73 sqM) Glucose 65 L (74-99) mg/dL Calcium 7.4 L (8.4-10.2) mg/dL Phosphorus 2.7 (2.5-4.5) mg/dL Magnesium 0.7 L* (1.6-2.3) mg/dL Total Bilirubin 0.5 (0.2-1.3) mg/dL AST 32 (14-36) U/L ALT 19 (4-34) U/L Alkaline Phosphatase 33 L (38-126) U/L Total Protein 6.4 (6.3-8.2) g/dL Albumin 4.1 (3.5-5.0) g/dL Disposition Clinical Impression: Hypomagnesemia Disposition: ADMITTED IP TO THIS [facility] Condition: Serious Decision to Admit Reason: Admit from EC Decision Date: 09/22/24 Decision Time: 19:45
[2024-09-22 18:36] LABS: Basophils # (A) 0.06 10*3/uL (0.00-0.10); Basophils % (A) 0.7 %; Eosinophils # (A) 0.15 10*3/uL (0.04-0.35); Eosinophils % (A) 1.7 %; HCT 36.4 % (37.2-46.3); HGB 12.5 g/dL (12.0-15.0); Lymphocytes # (A) 3.00 10*3/uL (0.90-5.00); Lymphocytes % (A) 34.9 %; MCH 34.8 pg (27.0-32.0); MCHC 34.3 g/dL (32.0-37.0); MCV 101.4 fL (80.0-97.0); Monocytes # (A) 0.56 10*3/uL (0.20-1.00); Monocytes % (A) 6.5 %; Neutrophils # (A) 4.78 10*3/uL (1.80-7.70); Neutrophils % (A) 55.7 %; Platelet Count 288 10*3/uL (140-440); RBC 3.59 10*6/uL (4.10-5.20); RDW 11.9 % (11.5-14.5); WBC 8.59 10*3/uL (4.50-10.00)
[2024-09-22 18:45] LABS: ALT 19 U/L (4-34); AST 32 U/L (14-36); African American GFR (CKD) >90 (>60 ml/min/1.73 sqM); Albumin 4.1 g/dL (3.5-5.0); Alkaline Phosphatase 33 U/L (38-126); Anion Gap 8 mmol/L; Blood Urea Nitrogen 6 mg/dL (7-17); Calcium 7.4 mg/dL (8.4-10.2); Carbon Dioxide 29 mmol/L (22-30); Chloride 103 mmol/L (98-107); Glucose 65 mg/dL (74-99); Non-African American GFR(CKD) >90 (>60 ml/min/1.73 sqM); Potassium 3.9 mmol/L (3.5-5.1); Sodium 140 mmol/L (137-145); Total Protein 6.4 g/dL (6.3-8.2)
[2024-09-22 18:47] LABS: Magnesium 0.7 mg/dL (1.6-2.3)
[2024-09-22] MEDS ORDERED: NALOXONE 0.4 MG/ML 1 ML VIAL IV PRN (19:45)
[2024-09-22] MEDS: MAGNESIUM SULFATE-D5W PMX 1 GM in DEXTROSE/WATER 1 100ML.BAG IVPB SCH (19:49)
[2024-09-22] MEDS: MAGNESIUM OXIDE 400 MG TAB PO STA (19:51)
[2024-09-22 20:27] LABS: Glucose,Whole Blood 192 mg/dL (70-110)
[2024-09-22] MEDS ORDERED: ONDANSETRON ODT 4 MG TAB PO PRN (22:50)
[2024-09-22] MEDS: MELATONIN 5 MG TABLET PO SCH (23:41)
[2024-09-23] MEDS: AMITRIPTYLINE HCL 10 MG TAB PO SCH (00:49)
[2024-09-23] MEDS: ATORVASTATIN 20 MG TAB PO SCH (00:50)
[2024-09-23] MEDS: LEVOTHYROXINE 50 MCG TAB PO SCH (06:25)
[2024-09-23 07:58] LABS: Basophils # (A) 0.05 X 10*3/uL (0.00-0.10); Basophils % (A) 0.7 %; Eosinophils # (A) 0.16 X 10*3/uL (0.04-0.35); Eosinophils % (A) 2.1 %; HCT 35.3 % (37.2-46.3); HGB 11.9 g/dL (12.0-15.0); Immature Grans, Automated 0.50 %; Lymphocytes # (A) 2.37 X 10*3/uL (0.90-5.00); Lymphocytes % (A) 30.9 %; MCH 34.5 pg (27.0-32.0); MCHC 33.7 g/dL (32.0-37.0); MCV 102.3 FL (80.0-97.0); Monocytes # (A) 0.56 X 10*3/uL (0.20-1.00); Monocytes % (A) 7.3 %; NRBC Per 100 WBC 0 X 10*3/uL (0.00-0.01); Neutrophils # (A) 4.50 X 10*3/uL (1.80-7.70); Neutrophils % (A) 58.5 %; Platelet Count 252 X 10*3/uL (140-440); RBC 3.45 X 10*6/uL (4.10-5.20); RDW 12.1 % (11.5-14.5); WBC 7.68 X 10*3/uL (4.50-10.00)
[2024-09-23] MEDS ORDERED: BUDESONIDE 0.5 MG/2 ML NEBU INHALATION SCH (08:00)
[2024-09-23] MEDS: ACETAMINOPHEN TAB 325 MG TAB PO PRN (08:25)
[2024-09-23] MEDS: MAGNESIUM OXIDE 400 MG TAB PO SCH (08:26)
[2024-09-23] MEDS: PANTOPRAZOLE 40 MG TABLET PO SCH (08:26)
[2024-09-23] MEDS: TIOTROPIUM 2.5 MCG INHALER INHALATION SCH (08:27)
[2024-09-23] MEDS: SYMBICORT 160-4.5 MCG INHALER INHALATION SCH (08:27)
[2024-09-23] MEDS ORDERED: NON FORMULARY DRUG (Vitamin B Complex/Folic Acid [Vitamin B Complex] 0.4 MG Tablet) PO SCH (09:00)
[2024-09-23 09:09] LABS: ALT 17 U/L (8-44); AST 20 U/L (13-35); Albumin 3.9 g/dL (3.8-4.9); Albumin/Globulin Ratio 2.29 Ratio (1.60-3.17); Alkaline Phosphatase 38 U/L (41-126); Anion Gap 9.10 mmol/L (4.00-12.00); BUN/Creat Ratio 11.80 Ratio (12.00-20.00); Blood Urea Nitrogen 5.9 mg/dL (9.0-27.0); Calcium 7.6 mg/dL (8.7-10.3); Carbon Dioxide 28.9 mmol/L (21.6-31.8); Chloride 104 mmol/L (96-109); Globulin 1.7 g/dL (1.6-3.3); Glucose 96 mg/dL (70-110); Magnesium 2.5 mg/dL (1.5-2.4); Potassium 4.0 mmol/L (3.5-5.5); Sodium 142 mmol/L (135-145); Total Protein 5.6 g/dL (6.2-8.2)
[2024-09-23 12:52] VITALS: BP 124/62; PULSE 56; RESP 16; TEMP 97.8
[2024-09-23 14:59] VITALS: BMI 20.5
[2024-09-23] MEDS ORDERED: ATORVASTATIN 20 MG TAB PO SCH (21:00)
[2024-09-23] MEDS ORDERED: AMITRIPTYLINE HCL 10 MG TAB PO SCH (21:00)
--- NOTE | 2024-09-24 13:52 | P.HPIM ---
History of Present Illness H&P Date: 09/23/24 This is a pleasant 69-year-old female who presented to the emergency department with generalized weakness and was called by her primary care office regarding abnormal magnesium level. Patient reports she has been to the ER a couple of times as well as at [facility] and was given transfusions for magnesium and potassium and sent home. Patient had repeat labs as follow-up and magnesium noted to be critically low and was told by primary care provider to come to the hospital for further evaluation. Patient has been reporting some dizziness and decreased appetite with generalized weakness. Patient reports her bowels are often abnormal and loose in nature and this has been this way chronically for quite some time. Patient cannot recall if she had a recent EGD or colonoscopy. Patient follows with Dr. Ortiz in the outpatient setting with a past medical history of GERD, hyperlipidemia, osteoarthritis, thyroid disorder. Patient does smoke cigarettes and drinks daily. Labs reviewed within normal white count of 8.59, hemoglobin stable at 12.5, platelets 288, MCV is elevated at 101.4, MCH 34.8, sodium is 140, potassium 3.9, BUN is 6 with a creatinine 0.46, calcium slightly low at 7.4, magnesium critically low at 0.7, phosphorus 2.7, total bili 0.5, LFTs within normal limits. Patient was admitted with hypomagnesemia. Magnesium was replaced and patient magnesium this morning is currently 2.5. REVIEW OF SYSTEMS: CONSTITUTIONAL: No fever, no malaise, no fatigue. HEENT: No recent visual problems or hearing problems. Denied any sore throat. CARDIOVASCULAR: No chest pain, orthopnea, PND, no palpitations, no syncope. PULMONARY: No shortness of breath, no cough, no hemoptysis. GASTROINTESTINAL: No diarrhea, no nausea, no vomiting, no abdominal pain. NEUROLOGICAL: No headaches, no weakness, no numbness. HEMATOLOGICAL: Denies any bleeding or petechiae. GENITOURINARY: Denies any burning micturition, frequency, or urgency. MUSCULOSKELETAL/RHEUMATOLOGICAL: Denies any joint pain, swelling, or any muscle pain. ENDOCRINE: Denies any polyuria or polydipsia. The rest of the 14-point review of systems is negative. PHYSICAL EXAMINATION: GENERAL: The patient is alert and oriented x3, not in any acute distress. Well developed, elderly appearing, thin built HEENT: Pupils are round and equally reacting to light. EOMI. No scleral icterus. No conjunctival pallor. Normocephalic, atraumatic. No pharyngeal erythema. No thyromegaly. CARDIOVASCULAR: S1 and S2 muffled PULMONARY: Diminished breath sounds bilaterally otherwise chest is clear to auscultation, no wheezing or crackles. ABDOMEN: Soft, thin, nontender, nondistended, normoactive bowel sounds. No palpable organomegaly. MUSCULOSKELETAL: No joint swelling or deformity. EXTREMITIES: No cyanosis, clubbing, or pedal edema. NEUROLOGICAL: Gross neurological examination did not reveal any focal deficits. SKIN: No rashes. Assessment: Hypomagnesemia, magnesium 0.7 on admission, improved at 2.5 today status post replacement History of GERD Hyperlipidemia Osteoarthritis history Thyroid disorder Tobacco use Daily alcohol use GI prophylaxis DVT prophylaxis Full code Plan: Patient was admitted with significant hypomagnesemia and has been ongoing over the last few weeks to months. Patient reports she does have chronically watery stools but denies any IBS or Crohn's. Patient does drink alcohol daily and have encouraged cessation or weaning as tolerated Patient with continued ongoing nicotine use recommend complete tobacco cessation Will initiate magnesium protocol and will add daily supplementation. Recommend outpatient follow-up with primary care provider The impression and plan of care has been dictated by Jyotsna Hammond, Nurse Practitioner as directed. Dr. Basilio MD I have performed a history and examination and MDM of this patient, discussed the same with the dictator, and agree with the dictator's assessment and plan as written ,documented as a scribe. Based on total visit time, I have performed more than 50% of the visit. Past Medical History Past Medical History: GERD/Reflux, Hyperlipidemia, Osteoarthritis (OA), Thyroid Disorder Additional Past Medical History / Comment(s): Pain lower lumber region, hx migraines, last 2 yrs ago, urinary leakage, difficulty swallowing. History of Any Multi-Drug Resistant Organisms: None Reported Past Surgical History: Appendectomy, Joint Replacement, Orthopedic Surgery Additional Past Surgical History / Comment(s): Bunionectomy, PAIN CLINIC INJECTIONS. Past Anesthesia/Blood Transfusion Reactions: Motion Sickness Past Psychological History: No Psychological Hx Reported Smoking Status: Light tobacco smoker Past Alcohol Use History: Occasional - Past Family History Father Family Medical History: Cancer Additional Family Medical History / Comment(s): LUNG CANCER. Mother Family Medical History: COPD Medications and Allergies Home Medications Medication Instructions Recorded Confirmed Type FLUoxetine HCL [Fluoxetine HCl] 20 mg PO DAILY 04/05/14 09/22/24 History Simvastatin 40 mg PO HS 04/05/14 09/22/24 History nadoloL [Nadolol] 20 mg PO DAILY 04/05/14 09/22/24 History Levothyroxine Sodium [Synthroid] 50 mcg PO DAILY 08/30/16 09/22/24 History Amitriptyline HCl 20 mg PO HS 02/22/19 09/22/24 History Vitamin B Complex/Folic Acid 0.4 mg PO DAILY 12/24/22 09/22/24 History [Vitamin B Complex] Budesonide 0.5 mg INHALATION RT-BID 09/22/24 09/22/24 History Fluticasone/Umeclidin/Vilanter 1 puff INHALATION RT-DAILY 09/22/24 09/22/24 History [Trelegy Ellipta 200-62.5-25] Ondansetron Odt [Zofran ODT] 4 mg PO Q6H PRN 09/22/24 09/22/24 History Pantoprazole [Protonix] 40 mg PO DAILY 09/22/24 09/22/24 History SUMAtriptan succinate [Imitrex] 100 mg PO BID PRN 09/22/24 09/22/24 History Acetaminophen Tab [Tylenol] 650 mg PO Q6HR PRN tab 09/23/24 Rx Magnesium Oxide [Magox 400] 400 mg PO DAILY #30 tab 09/23/24 Rx Allergies Allergy/AdvReac Type Severity Reaction Status Date / Time Sulfa (Sulfonamide Allergy Unknown Verified 09/22/24 20:10 Antibiotics) Childhood Physical Exam Vitals: Vital Signs Temp Pulse Pulse Resp BP BP Pulse Ox 09/23/24 07:55 97.7 F 70 15 178/78 98 09/23/24 01:46 97.6 F 60 15 119/68 97 09/22/24 21:12 97.8 F 65 15 127/72 96 09/22/24 20:53 98.7 F 62 18 121/67 98 09/22/24 19:54 97.7 F 64 17 145/86 97 09/22/24 18:35 60 18 144/67 98 09/22/24 16:50 98.5 F 88 20 118/70 98 Intake and Output 07/09/25 07/10/25 07/10/25 22:59 06:59 14:59 Intake Total 118 Balance 118 Intake: Oral 118 Other: # Voids 1 Weight 47.627 kg Results CBC & Chem 7: 09/23/24 05:16 09/23/24 05:16 Labs: Abnormal Lab Results - Last 24 Hours (Table) 09/22/24 09/22/24 09/22/24 Range/Units 18:21 18:21 20:25 RBC 3.59 L (4.10-5.20) 10*6/uL Hgb (12.0-15.0) g/dL Hct 36.4 L (37.2-46.3) % MCV 101.4 H (80.0-97.0) fL MCH 34.8 H (27.0-32.0) pg MPV 9.3 L (9.5-12.2) fL BUN 6 L (7-17) mg/dL Creatinine 0.46 L (0.52-1.04) mg/dL BUN/Creatinine Ratio (12.00-20.00) Ratio Glucose 65 L (74-99) mg/dL POC Glucose (mg/dL) 192 H (70-110) mg/dL Calcium 7.4 L (8.4-10.2) mg/dL Magnesium 0.7 L* (1.6-2.3) mg/dL Alkaline Phosphatase 33 L (38-126) U/L Total Protein (6.2-8.2) g/dL 09/23/24 09/23/24 Range/Units 05:16 05:16 RBC 3.45 L (4.10-5.20) 10*6/uL Hgb 11.9 L (12.0-15.0) g/dL Hct 35.3 L (37.2-46.3) % MCV 102.3 H (80.0-97.0) fL MCH 34.5 H (27.0-32.0) pg MPV 9.4 L (9.5-12.2) fL BUN 5.9 L (7-17) mg/dL Creatinine 0.5 L (0.52-1.04) mg/dL BUN/Creatinine Ratio 11.80 L (12.00-20.00) Ratio Glucose (74-99) mg/dL POC Glucose (mg/dL) (70-110) mg/dL Calcium 7.6 L (8.4-10.2) mg/dL Magnesium 2.5 H (1.6-2.3) mg/dL Alkaline Phosphatase 38 L (38-126) U/L Total Protein 5.6 L (6.2-8.2) g/dL Thrombosis Risk Factor Assmnt - Choose All That Apply Any of the Below Risk Factors Present?: No Each Factor Represents 1 point: Age 41-60 years Each Risk Factor Represents 2 Points: Age 61-74 years Thrombosis Risk Factor Assessment Total Risk Factor Score: 3 Thrombosis Risk Factor Assessment Level: Moderate Risk
--- NOTE | 2024-09-24 13:55 | P.DS ---
Providers Date of admission: 09/22/24 19:22 Expected date of discharge: 09/23/24 Attending physician: Daren Piper MD Primary care physician: Paty Ortiz Hospital Course: Final diagnosis Hypomagnesemia, magnesium 0.7 on admission, improved at 2.5 today status post replacement History of GERD Hyperlipidemia Osteoarthritis history Thyroid disorder Tobacco use Daily alcohol use GI prophylaxis DVT prophylaxis Full code Discharge disposition Patient is being discharged in a stable condition with guarded prognosis to home. Patient will follow-up with Dr. Ortiz in the outpatient setting upon discharge. Patient is to continue with magnesium supplements and outpatient follow-up with repeat labs. Recommend outpatient follow-up with GI as scheduled. Total time taken is greater than 35 minutes. Hospital course This is a pleasant 69-year-old female who presented to the emergency department with generalized weakness and was called by her primary care office regarding abnormal magnesium level. Patient reports she has been to the ER a couple of times as well as at [facility] ER and was given transfusions for magnesium and potassium and sent home. Patient had repeat labs as follow-up and magnesium noted to be critically low and was told by primary care provider to come to the hospital for further evaluation. Patient has been reporting some dizziness and decreased appetite with generalized weakness. Patient reports her bowels are often abnormal and loose in nature and this has been this way chronically for quite some time. Patient cannot recall if she had a recent EGD or colonoscopy. Patient follows with Dr. Ortiz in the outpatient setting with a past medical history of GERD, hyperlipidemia, osteoarthritis, thyroid disorder. Patient does smoke cigarettes and drinks daily. Labs reviewed within normal white count of 8.59, hemoglobin stable at 12.5, platelets 288, MCV is elevated at 101.4, MCH 34.8, sodium is 140, potassium 3.9, BUN is 6 with a creatinine 0.46, calcium slightly low at 7.4, magnesium critically low at 0.7, phosphorus 2.7, total bili 0.5, LFTs within normal limits. Patient was admitted with hypomagnesemia. Magnesium was replaced and patient magnesium this morning is currently 2.5. Patient was admitted with significant hypomagnesemia and has been ongoing over the last few weeks to months. Patient reports she does have chronically watery stools but denies any IBS or Crohn's. Recommend outpatient follow-up with GI for possible EGD/colonoscopy Patient does drink alcohol daily and have encouraged cessation or weaning as tolerated Patient with continued ongoing nicotine use recommend complete tobacco cessation Continue daily magnesium supplementation. Recommend outpatient follow-up with primary care provider Patient is being discharged home today. PHYSICAL EXAMINATION: GENERAL: The patient is alert and oriented x3, not in any acute distress. Well developed, elderly appearing, thin built HEENT: Pupils are round and equally reacting to light. EOMI. No scleral icterus. No conjunctival pallor. Normocephalic, atraumatic. No pharyngeal erythema. No thyromegaly. CARDIOVASCULAR: S1 and S2 muffled PULMONARY: Diminished breath sounds bilaterally otherwise chest is clear to auscultation, no wheezing or crackles. ABDOMEN: Soft, thin, nontender, nondistended, normoactive bowel sounds. No palpable organomegaly. MUSCULOSKELETAL: No joint swelling or deformity. EXTREMITIES: No cyanosis, clubbing, or pedal edema. NEUROLOGICAL: Gross neurological examination did not reveal any focal deficits. SKIN: No rashes. Please refer to medication reconciliation sheet for a list of medications. The impression and plan of care has been dictated by Jyotsna Hammond, Nurse Practitioner as directed. Dr. Basilio MD I have performed a history and examination and MDM of this patient, discussed the same with the dictator, and agree with the dictator's assessment and plan as written ,documented as a scribe. Based on total visit time, I have performed more than 50% of the visit. Patient Condition at Discharge: Fair Plan - Discharge Summary Discharge Rx Participant: No New Discharge Prescriptions: New Acetaminophen Tab [Tylenol] 650 mg PO Q6HR PRN tab PRN Reason: Mild Pain Or Fever > 100.5 Continue nadoloL [Nadolol] 20 mg PO DAILY FLUoxetine HCL [Fluoxetine HCl] 20 mg PO DAILY Simvastatin 40 mg PO HS Levothyroxine Sodium [Synthroid] 50 mcg PO DAILY Amitriptyline HCl 20 mg PO HS Fluticasone/Umeclidin/Vilanter [Trelegy Ellipta 200-62.5-25] 1 puff INHALATION RT-DAILY SUMAtriptan succinate [Imitrex] 100 mg PO BID PRN PRN Reason: Migraine Headache Magnesium Oxide [Magox 400] 400 mg PO DAILY #30 tab Vitamin B Complex/Folic Acid [Vitamin B Complex] 0.4 mg PO DAILY Pantoprazole [Protonix] 40 mg PO DAILY Budesonide 0.5 mg INHALATION RT-BID Ondansetron Odt [Zofran ODT] 4 mg PO Q6H PRN PRN Reason: Nausea And Vomiting Discharge Medication List FLUoxetine HCL [Fluoxetine HCl] 20 mg PO DAILY 04/05/14 [History] Simvastatin 40 mg PO HS 04/05/14 [History] nadoloL [Nadolol] 20 mg PO DAILY 04/05/14 [History] Levothyroxine Sodium [Synthroid] 50 mcg PO DAILY 08/30/16 [History] Amitriptyline HCl 20 mg PO HS 02/22/19 [History] Vitamin B Complex/Folic Acid [Vitamin B Complex] 0.4 mg PO DAILY 12/24/22 [History] Budesonide 0.5 mg INHALATION RT-BID 09/22/24 [History] Fluticasone/Umeclidin/Vilanter [Trelegy Ellipta 200-62.5-25] 1 puff INHALATION RT-DAILY 09/22/24 [History] Ondansetron Odt [Zofran ODT] 4 mg PO Q6H PRN 09/22/24 [History] Pantoprazole [Protonix] 40 mg PO DAILY 09/22/24 [History] SUMAtriptan succinate [Imitrex] 100 mg PO BID PRN 09/22/24 [History] Acetaminophen Tab [Tylenol] 650 mg PO Q6HR PRN tab 09/23/24 [Rx] Magnesium Oxide [Magox 400] 400 mg PO DAILY #30 tab 09/23/24 [Rx] Follow up Appointment(s)/Referral(s): Paty Ortiz DO [Primary Care Provider] - 1-2 days (Please call the office to make your follow-up appt.) January Hernandez MD [STAFF PHYSICIAN] - 2 Weeks (Follow-up outpatient schedule routine colonoscopy) Activity/Diet/Wound Care/Special Instructions: Activity limited until follow-up Follow-up with primary care provider on discharge Continue taking magnesium twice daily Discharge Disposition: HOME SELF-CARE
== END 2024-09-23 15:51 | disposition home or self-care (01) ==
LOC: EC 16:10 → 5NMEDONC 19:22 → INTOOBSV 19:22 → 5NMEDONC 20:49 → UNDODISIN 09-23 15:51
PROVIDERS: ADMIT Internal Medicine; ATTEND Internal Medicine
DX: E83.42 Hypomagnesemia (principal); E03.9 Hypothyroidism, unspecified; I10 Essential (primary) hypertension; E83.52 Hypercalcemia; E16.2 Hypoglycemia, unspecified; K21.9 Gastro-esophageal reflux disease without esophagitis; F10.90 Alcohol use, unspecified, uncomplicated; E78.5 Hyperlipidemia, unspecified; M19.90 Unspecified osteoarthritis, unspecified site; F17.210 Nicotine dependence, cigarettes, uncomplicated; Z79.51 Long term (current) use of inhaled steroids; Z79.890 Hormone replacement therapy; Z79.899 Other long term (current) drug therapy; Z88.2 Allergy status to sulfonamides
CPT/HCPCS: 96366; 96365; 99284; 36415; 94640 ×2; 93005; 80053 ×2; 83735 ×2; 84100; 85025 ×2; G0378 ×2; J3475; 99285